=== PATIENT | male | born 1970 | race Hispanic/Latino ===

== ENCOUNTER 2017-12-26 20:56 | Observation (INO) | payer MEDICARE ==
[~2017-12-26] VITALS: Ht 162.6 cm; Wt 77.3 kg
[~2017-12-26 20:56] MED LIST: ALLO300T2 PO; AMLO10TA2 PO; CALC667C10 PO; FLUO40CA49 PO; LEVO88TA7 PO; LISI40TA4 PO; METO50TA18 PO; OMEP40CA37 PO; SIMV20TA6 PO
[2017-12-26 21:49] LABS: BASOPHILS % (AUTO) 0.9 % (0.0-5.0); EOSINOPHILS % (AUTO) 2.4 % (0.0-8.0); HEMATOCRIT 35.1 % (42-54); LYMPHOCYTES % (AUTO) 20.4 % (21.0-51.0); MEAN CORPUSCULAR HEMOGLOBIN 33.2 pg (27.0-33.0); MONOCYTES % (AUTO) 6.3 % (3.0-13.0); PLATELET COUNT (AUTO) 141 K/uL (130-400); RED CELL DISTRIBUTION WIDTH 15.4 % (11.0-15.5); WHITE BLOOD COUNT (AUTO) 6.6 K/uL (4.8-10.8)
[2017-12-26 22:07] LABS: CREATININE 6.4 mg/dL (0.5-1.5); POTASSIUM 4.4 mmol/L (3.5-5.1)
[2017-12-26 22:13] LABS: B-TYPE NATRIURETIC PEPTIDE 931 pg/mL (0-100)
[2017-12-26 22:20] LABS: ALBUMIN 2.5 g/dL (3.5-5.0); BILIRUBIN,DIRECT 0.2 mg/dL (0.0-0.3); BILIRUBIN,TOTAL 0.4 mg/dL (0.2-1.0); CREATINE KINASE MB 0.9 ng/mL (0.5-3.6); TOTAL PROTEIN, SERUM 5.9 g/dL (6.0-8.3)
[2017-12-27] VITALS (10 sets, daily range): BP systolic 100–160; BP diastolic 53–77
[2017-12-27] MEDS ORDERED: PANTOPRAZOLE SODIUM 40 MG TABLET.DR PO ONE (00:04)
[2017-12-27] MEDS ORDERED: HYDRALAZINE HCL 20 MG/ML VIAL IV PRN (02:45)
[2017-12-27] MEDS ORDERED: IPRATROPIUM/ALBUTEROL SULFATE 3 ML SOLUTION IH PRN (02:45)
[2017-12-27] MEDS ORDERED: DEXTROSE 50%-WATER 50 ML DISP.SYRIN IV PRN (02:45)
[2017-12-27] MEDS ORDERED: ONDANSETRON HCL 4 MG/2 ML VIAL IVP PRN (02:45)
[2017-12-27] MEDS ORDERED: GLUCAGON 1MG KIT 1 MG ML IM PRN (02:45)
[2017-12-27] MEDS ORDERED: LACTULOSE 20 GM/30 ML UDCUP PO PRN (02:45)
[2017-12-27] MEDS ORDERED: MORPHINE SULFATE 2 MG/ML 1ML SYG IVP PRN ×2 (02:45)
[2017-12-27 05:15] LABS: BASOPHILS % (AUTO) 0.8 % (0.0-5.0); LYMPHOCYTES % (AUTO) 22.4 % (21.0-51.0); MEAN CORPUSCULAR HEMOGLOBIN 32.6 pg (27.0-33.0); MEAN CORPUSCULAR HGB CONC 34.6 g/dL (32.0-36.0); MEAN CORPUSCULAR VOLUME 94.2 fL (79-99); MONOCYTES % (AUTO) 6.8 % (3.0-13.0); PLATELET COUNT (AUTO) 126 K/uL (130-400); RED BLOOD CELL COUNT(AUTO) 3.51 MIL/uL (4.50-6.20); RED CELL DISTRIBUTION WIDTH 15.2 % (11.0-15.5); WHITE BLOOD COUNT (AUTO) 6.8 K/uL (4.8-10.8)
[2017-12-27 05:37] LABS: CREATININE 6.6 mg/dL (0.5-1.5); POTASSIUM 4.4 mmol/L (3.5-5.1)
[2017-12-27] MEDS: INSULIN HUMULIN R 100 UNIT/ML 3ML SQ SCH ×3 (06:28→21:00)
[2017-12-27] MEDS ORDERED: FLU VACC QS2017-18 36MOS UP/PF 60 MCG/0.5 ML ML IM ONE (06:30)
[2017-12-27] MEDS ORDERED: FAMOTIDINE 20MG TAB 20 MG TAB PO SCH (09:00)
[2017-12-27 12:28] LABS: INR 1.08 (0.85-1.15); PARTIAL THROMBOPLASTIN TIME 28.7 SEC (26.3-35.5); PROTHROMBIN TIME 11.3 SEC (9.6-11.6)
[2017-12-27] MEDS ORDERED: CALCIUM ACETATE 667 MG CAPSULE PO SCH (14:00)
[2017-12-27] MEDS ORDERED: ALBUMIN (HUMAN) 25% 100 ML IV PRN (16:00)
[2017-12-27] MEDS ORDERED: HEPARIN SODIUM 5000UNIT/ML 1ML VIAL IJ PRN (16:00)
[2017-12-27] MEDS ORDERED: SODIUM CHLORIDE 0.9% 1000ML 1,000 ML IV PRN (16:00)
[2017-12-27] MEDS ORDERED: FLUOXETINE HCL 20 MG CAPSULE PO SCH (21:00)
[2017-12-27] MEDS ORDERED: METOPROLOL TARTRATE 50 MG TAB PO SCH (21:00)
[2017-12-27] MEDS ORDERED: ATORVASTATIN CALCIUM 10 MG TABLET PO SCH (21:00)
[2017-12-28] MEDS ORDERED: LEVOTHYROXINE 100 MCG TABLET PO SCH (06:30)
[2017-12-28] MEDS ORDERED: AMLODIPINE BESYLATE 5 MG TAB PO SCH (09:00)
[2017-12-28] MEDS ORDERED: LISINOPRIL 40 MG TABLET PO SCH (09:00)
[2017-12-28] MEDS ORDERED: ALLOPURINOL 300 MG TABLET PO SCH (09:00)
== END 2017-12-27 22:35 | disposition home or self-care (01) ==
LOC: EDH 20:56 → EDHIP 12-27 00:37 → 3DH 12-27 01:31
PROVIDERS: ADMIT Internal Medicine; ATTEND Internal Medicine
DX: R18.8 Other ascites (principal); N18.6 End stage renal disease; Z99.2 Dependence on renal dialysis; E11.22 Type 2 diabetes mellitus with diabetic chronic kidney disease; I12.0 Hypertensive chronic kidney disease with stage 5 chronic kidney disease or end stage renal disease; K74.60 Unspecified cirrhosis of liver; E78.5 Hyperlipidemia, unspecified; E03.9 Hypothyroidism, unspecified; D63.8 Anemia in other chronic diseases classified elsewhere; I25.10 Atherosclerotic heart disease of native coronary artery without angina pectoris; Z23 Encounter for immunization
CPT/HCPCS: 36415 ×2; 49083; 71045; 76700; 80048 ×2; 80076; 82550; 82553; 82948 ×6; 83690; 83880; 84484; 85025 ×2; 85610; 85730; 87804 ×2; 94664; 96374; 96375; 99285; G0008; G0378 ×22; J2405; J7030; Q2038; 90935

== ENCOUNTER 2018-03-12 16:31 | Inpatient (IN) | payer MEDICARE ==
[~2018-03-12] VITALS: Ht 162.6 cm; Wt 72.0 kg
[2018-03-12 17:03] LABS: BASOPHILS % (AUTO) 0.8 % (0.0-5.0); EOSINOPHILS % (AUTO) 2.5 % (0.0-8.0); HEMATOCRIT 32.3 % (42-54); LYMPHOCYTES % (AUTO) 20.9 % (21.0-51.0); MEAN CORPUSCULAR HEMOGLOBIN 32.6 pg (27.0-33.0); MEAN CORPUSCULAR HGB CONC 33.6 g/dL (32.0-36.0); MEAN CORPUSCULAR VOLUME 97.2 fL (79-99); MONOCYTES % (AUTO) 6.5 % (3.0-13.0); NEUTROPHILS % (AUTO) 69.3 % (40.0-77.0); PLATELET COUNT (AUTO) 203 K/uL (130-400); RED BLOOD CELL COUNT(AUTO) 3.33 MIL/uL (4.50-6.20); RED CELL DISTRIBUTION WIDTH 16.2 % (11.0-15.5); WHITE BLOOD COUNT (AUTO) 6.8 K/uL (4.8-10.8)
[2018-03-12 17:14] LABS: POTASSIUM 4.1 mmol/L (3.5-5.1)
[2018-03-12 17:29] LABS: ALBUMIN 2.1 g/dL (3.5-5.0); BILIRUBIN,TOTAL 0.3 mg/dL (0.2-1.0); CREATINE KINASE MB 3.4 ng/mL (0.5-3.6); TOTAL PROTEIN, SERUM 6.9 g/dL (6.0-8.3)
[2018-03-12 17:36] LABS: AMMONIA 15 umol/L (11-32); LIPASE 155 U/L (114-286)
[2018-03-12 18:17] LABS: INR 0.95 (0.85-1.15); PARTIAL THROMBOPLASTIN TIME 26.6 SEC (26.3-35.5)
[2018-03-12] MEDS ORDERED: FUROSEMIDE 10 MG/ML 4ML VIAL ONE (20:47)
[2018-03-13] VITALS (15 sets, daily range): BP systolic 107–141; BP diastolic 47–98
[2018-03-13] MEDS ORDERED: HYDRALAZINE HCL 20 MG/ML VIAL IV PRN (00:30)
[2018-03-13] MEDS ORDERED: ONDANSETRON HCL 4 MG/2 ML VIAL IV PRN (00:30)
[2018-03-13] MEDS: INSULIN HUMULIN R 100 UNIT/ML 3ML SQ SCH ×5 (06:17→21:00)
[2018-03-13] MEDS ORDERED: LOPERAMIDE HCL 2 MG CAP PO SCH (09:30)
[2018-03-13] MEDS ORDERED: ALBUMIN (HUMAN) 25% 100 ML IV SCH (13:30)
[2018-03-13 19:42] LABS: APPEARANCE BODY FLUID CLEAR (CLEAR); COLOR,BODY FLUID YELLOW (LT YELLOW); SPECIMENTYPE,BODY FLUID PARACENTESIS
[2018-03-13 19:43] LABS: BODY FLUID RBC 121 /cu. mm.; BODY FLUID WBC 109 /cu. mm.; TOTAL VOLUME,BODY FLUID 33 mL
[2018-03-13 20:10] LABS: BF LYMPHOCYTE 55 %; BF MONOCYTE 13 %; BF OTHER CELLS 3
[2018-03-14] VITALS (7 sets, daily range): BP systolic 103–128; BP diastolic 49–69
[2018-03-14] MEDS ORDERED: ACETAMINOPHEN 325 MG TAB PO ONE (00:15)
[2018-03-14] MEDS ORDERED: ACETAMINOPHEN 325 MG TAB ONE (00:24)
[2018-03-14 04:08] LABS: CREATININE 7.5 mg/dL (0.5-1.5); POTASSIUM 5.5 mmol/L (3.5-5.1)
[2018-03-14] MEDS: INSULIN HUMULIN R 100 UNIT/ML 3ML SQ SCH ×3 (07:30→21:00)
[2018-03-14 10:28] LABS: HEMATOCRIT 31.2 % (42-54); MEAN CORPUSCULAR HEMOGLOBIN 32.5 pg (27.0-33.0); MEAN CORPUSCULAR HGB CONC 32.9 g/dL (32.0-36.0); MEAN CORPUSCULAR VOLUME 98.7 fL (79-99); PLATELET COUNT (AUTO) 171 K/uL (130-400); RED BLOOD CELL COUNT(AUTO) 3.16 MIL/uL (4.50-6.20); RED CELL DISTRIBUTION WIDTH 15.7 % (11.0-15.5); WHITE BLOOD COUNT (AUTO) 7.4 K/uL (4.8-10.8)
[2018-03-14] MEDS ORDERED: HEPARIN SODIUM 5000UNIT/ML 1ML VIAL ONE (18:29)
[2018-03-14] MEDS ORDERED: ALBUMIN (HUMAN) 25% 100 ML IV PRN (19:00)
[2018-03-14] MEDS ORDERED: 0.9% SODIUM CHLORIDE 250 ML IV BAG IV PRN (19:00)
[2018-03-14] MEDS ORDERED: SODIUM CHLORIDE 0.9% 1000ML 1,000 ML IV PRN (19:00)
[2018-03-14] MEDS ORDERED: ACETAMINOPHEN EXTRA STRENGTH 500 MG TABLET PO PRN (21:45)
[2018-03-14] MEDS ORDERED: ACETAMINOPHEN EXTRA STRENGTH 500 MG TABLET ONE (21:50)
[2018-03-14] MEDS: CEFTRIAXONE SODIUM 1 GM IV SCH (21:56)
[2018-03-15 04:00] VITALS: BP 134/73
[2018-03-15 05:37] LABS: CREATININE 5.2 mg/dL (0.5-1.5); POTASSIUM 4.5 mmol/L (3.5-5.1)
[2018-03-15] MEDS: INSULIN HUMULIN R 100 UNIT/ML 3ML SQ SCH ×3 (07:30→16:30)
[2018-03-15 08:00] VITALS: BP 125/67
[2018-03-15] MEDS: CEFTRIAXONE SODIUM 1 GM IV SCH (08:16)
[2018-03-15] MEDS ORDERED: LEVO250T2 PO (10:25)
[2018-03-15 12:00] VITALS: BP 133/64
[2018-03-15 17:38] VITALS: BP 152/53
[2018-03-15] MEDS ORDERED: CEFTRIAXONE SODIUM 1 GM IV SCH (21:00)
== END 2018-03-15 19:55 | disposition home or self-care (01) | DRG 423 ==
LOC: EDH 16:31 → EDHIP 20:11 → OBSVTOIN 20:11 → 3AH 23:32
PROVIDERS: ADMIT Internal Medicine; ATTEND Internal Medicine
PROC: 0W9G3ZZ Drainage of Peritoneal Cavity, Percutaneous Approach (ICD-10-PCS; principal; 2018-03-13)
PROC: 0JBQ0ZZ Excision of Right Foot Subcutaneous Tissue and Fascia, Open Approach (ICD-10-PCS; 2018-03-13)
PROC: 5A1D70Z Performance of Urinary Filtration, Intermittent, Less than 6 Hours Per Day (ICD-10-PCS; 2018-03-14)
DX: K70.31 Alcoholic cirrhosis of liver with ascites (principal); N18.6 End stage renal disease; E11.22 Type 2 diabetes mellitus with diabetic chronic kidney disease; E11.51 Type 2 diabetes mellitus with diabetic peripheral angiopathy without gangrene; I12.0 Hypertensive chronic kidney disease with stage 5 chronic kidney disease or end stage renal disease; L97.429 Non-pressure chronic ulcer of left heel and midfoot with unspecified severity; E11.621 Type 2 diabetes mellitus with foot ulcer; E78.5 Hyperlipidemia, unspecified; E87.70 Fluid overload, unspecified; Z89.439 Acquired absence of unspecified foot; Z99.2 Dependence on renal dialysis; Z88.1 Allergy status to other antibiotic agents
CPT/HCPCS: 36415; 49083; 71045; 80048; 80053; 82140; 82550; 82553; 82948; 83690; 84157; 84484; 85025; 85027; 85610; 85730; 87071; 87205; 88108; 89051; 90935; 93005; 93306; A4218; J0696; J1644; J1940; P9046

== ENCOUNTER 2018-04-14 18:47 | Emergency (ER) | payer MEDICARE ==
[~2018-04-14 18:47] MED LIST changes: +LEVO250T2 PO
[2018-04-14] MEDS ORDERED: ONDANSETRON HCL MDV 20ML 2 MG/ML VIAL ONE (19:56)
[2018-04-14] MEDS ORDERED: SODIUM CHLORIDE 0.9% 250 ML IV ONE (19:57)
[2018-04-14 20:03] LABS: BASOPHILS % (AUTO) 0.9 % (0.0-5.0); EOSINOPHILS % (AUTO) 3.2 % (0.0-8.0); HEMATOCRIT 29.3 % (42-54); LYMPHOCYTES % (AUTO) 21.6 % (21.0-51.0); MEAN CORPUSCULAR HGB CONC 33.6 g/dL (32.0-36.0); MEAN CORPUSCULAR VOLUME 98.1 fL (79-99); MONOCYTES % (AUTO) 7.7 % (3.0-13.0); NEUTROPHILS % (AUTO) 66.6 % (40.0-77.0); PLATELET COUNT (AUTO) 170 K/uL (130-400); RED BLOOD CELL COUNT(AUTO) 2.99 MIL/uL (4.50-6.20); RED CELL DISTRIBUTION WIDTH 14.8 % (11.0-15.5); WHITE BLOOD COUNT (AUTO) 6.6 K/uL (4.8-10.8)
[2018-04-14 20:15] LABS: CREATININE 5.8 mg/dL (0.5-1.5); POTASSIUM 4.7 mmol/L (3.5-5.1)
[2018-04-14 20:19] LABS: BILIRUBIN,TOTAL 0.3 mg/dL (0.2-1.0); TOTAL PROTEIN, SERUM 5.7 g/dL (6.0-8.3)
== END 2018-04-14 22:51 | disposition home or self-care (01) ==
LOC: EDH 18:47
DX: R18.8 Other ascites (principal); R19.7 Diarrhea, unspecified; D64.9 Anemia, unspecified; I12.0 Hypertensive chronic kidney disease with stage 5 chronic kidney disease or end stage renal disease; E11.22 Type 2 diabetes mellitus with diabetic chronic kidney disease; N18.6 End stage renal disease; E07.9 Disorder of thyroid, unspecified; E78.5 Hyperlipidemia, unspecified; Z99.2 Dependence on renal dialysis; Z88.1 Allergy status to other antibiotic agents
CPT/HCPCS: 36415; 74176; 80053; 83690; 84484; 85025; 93005; 96361; 96374; 96375; 99285; J7030

== ENCOUNTER 2018-09-20 17:41 | Emergency (ER) | payer MEDICARE ==
[~2018-09-20 17:41] MED LIST changes: +ALLO100T PO; -ALLO300T2 PO; -AMLO10TA2 PO; +AMLO10TA4 PO; +CLOP75TA14 PO; -FLUO40CA49 PO; +FLUO40CA7 PO; +FOLI0.8T43 PO; +LEVO100T12 PO; -LEVO250T2 PO; -LEVO88TA7 PO; -LISI40TA4 PO; -OMEP40CA37 PO; +ONDA4TAB9 PO; -SIMV20TA6 PO; +SIMV40TA59 PO
[2018-09-20] MEDS ORDERED: HYDROCODONE/ACETAMINOPHEN 10/325 MG TAB ONE (17:50)
== END 2018-09-20 21:47 | disposition home or self-care (01) ==
LOC: EDH 17:41
DX: M79.672 Pain in left foot (principal); R50.9 Fever, unspecified; I12.0 Hypertensive chronic kidney disease with stage 5 chronic kidney disease or end stage renal disease; E11.22 Type 2 diabetes mellitus with diabetic chronic kidney disease; N18.6 End stage renal disease; E78.5 Hyperlipidemia, unspecified; E07.9 Disorder of thyroid, unspecified; Z88.1 Allergy status to other antibiotic agents; Z99.2 Dependence on renal dialysis; Z98.890 Other specified postprocedural states
CPT/HCPCS: 93925

== ENCOUNTER 2018-10-21 21:13 | Inpatient (IN) | payer MEDICARE ==
[~2018-10-21] VITALS: Ht 162.6 cm; Wt 70.0 kg
[2018-10-21] MEDS ORDERED: MORPHINE SULFATE 4 MG/1ML SYG ONE (21:42)
[2018-10-21 22:06] LABS: BASOPHILS % (AUTO) 1.2 % (0.0-5.0); EOSINOPHILS % (AUTO) 3.3 % (0.0-8.0); HEMATOCRIT 31.3 % (42-54); LYMPHOCYTES % (AUTO) 19.2 % (21.0-51.0); MEAN CORPUSCULAR HEMOGLOBIN 31.2 pg (27.0-33.0); MEAN CORPUSCULAR VOLUME 97.4 fL (79-99); MONOCYTES % (AUTO) 6.6 % (3.0-13.0); NEUTROPHILS % (AUTO) 69.7 % (40.0-77.0); NUCLEATED RED BLOOD CELLS 0.1 % (0.0-0.19); PLATELET COUNT (AUTO) 137 K/uL (130-400); RED BLOOD CELL COUNT(AUTO) 3.22 MIL/uL (4.50-6.20); RED CELL DISTRIBUTION WIDTH 14.3 % (11.0-15.5); WHITE BLOOD COUNT (AUTO) 7.1 K/uL (4.8-10.8)
[2018-10-21 22:23] LABS: ALBUMIN 2.6 g/dL (3.5-5.0); BILIRUBIN,TOTAL 0.5 mg/dL (0.2-1.0); TOTAL PROTEIN, SERUM 7.2 g/dL (6.0-8.3)
[2018-10-21 22:33] LABS: CREATININE 8.7 mg/dL (0.5-1.5)
[2018-10-21 23:08] LABS: ERYTHROCYTE SEDIMENTATION RATE 57 MM/HR (0-15)
[2018-10-22] MEDS ORDERED: SODIUM POLYSTYRENE SULFONATE 15 GM/60 ML ML ONE (00:09)
[2018-10-22] MEDS ORDERED: SODIUM POLYSTYRENE SULFONATE 15 GM/60 ML ML PO SCH (00:15)
[2018-10-22] MEDS ORDERED: ONDANSETRON HCL 4 MG/2 ML VIAL IV PRN (00:15)
[2018-10-22] MEDS ORDERED: ACETAMINOPHEN 325 MG TAB PO PRN (00:15)
[2018-10-22] MEDS ORDERED: ALBUTEROL SULFATE 0.083% 2.5 MG/3 ML INH IH PRN (00:15)
[2018-10-22] MEDS ORDERED: MORPHINE SULFATE 4 MG/1ML SYG IV PRN (00:15)
[2018-10-22] MEDS ORDERED: MEROPENEM 500 MG VIAL IVP SCH ×2 (01:00)
[2018-10-22] MEDS ORDERED: MEROPENEM 1 GM VIAL ONE (02:27)
[2018-10-22] MEDS ORDERED: SODIUM CHLORIDE 0.9% 50 ML IV ONE (02:28)
[2018-10-22] MEDS ORDERED: ONDANSETRON 4 MG TABLET ONE (02:28)
[2018-10-22] MEDS: LEVOTHYROXINE 100 MCG TABLET PO SCH (07:30)
[2018-10-22] MEDS: CALCIUM ACETATE 667 MG CAPSULE PO SCH ×3 (08:00→17:00)
[2018-10-22] MEDS: ALLOPURINOL 100 MG TABLET PO SCH (09:00)
[2018-10-22] MEDS ORDERED: ENOXAPARIN SODIUM 30 MG/0.3 ML SQ SCH (09:00)
[2018-10-22] MEDS: FAMOTIDINE/PF 20 MG/2 ML VIAL IV SCH (09:00)
[2018-10-22] MEDS: FLUOXETINE HCL 20 MG CAPSULE PO SCH (09:00)
[2018-10-22] MEDS: FOLIC ACID/VITAMIN B COMP W-C 1 MG CAPSULE PO SCH (09:00)
[2018-10-22] MEDS: CLOPIDOGREL BISULFATE 75 MG TAB PO SCH (09:00)
[2018-10-22] MEDS ORDERED: METOPROLOL TARTRATE 50 MG TAB PO SCH (09:00)
[2018-10-22] MEDS: AMLODIPINE BESYLATE 5 MG TAB PO SCH (09:00)
[2018-10-22] MEDS ORDERED: CLOPIDOGREL BISULFATE 75 MG TAB ONE (09:19)
[2018-10-22] MEDS ORDERED: MEROPENEM 500 MG VIAL ONE (09:19)
[2018-10-22] MEDS ORDERED: METOPROLOL TARTRATE 50 MG TAB ONE (09:20)
[2018-10-22] MEDS ORDERED: AMLODIPINE BESYLATE 5 MG TAB PO ONE (09:20)
[2018-10-22] MEDS ORDERED: ENOXAPARIN SODIUM 30 MG/0.3 ML SQ ONE (09:20)
[2018-10-22] MEDS ORDERED: FAMOTIDINE/PF 20 MG/2 ML VIAL IV ONE (09:21)
[2018-10-22 16:00] VITALS: BP 111/75
[2018-10-22] MEDS: ONDANSETRON 4 MG TABLET PO SCH (16:00)
[2018-10-22] MEDS: INSULIN HUMULIN R 100 UNIT/ML 3ML SQ SCH ×2 (16:30→20:36)
[2018-10-22 17:59] LABS: CREATININE 9.7 mg/dL (0.5-1.5); POTASSIUM 7.1 mmol/L (3.5-5.1)
[2018-10-22 19:00] VITALS: BP 123/46
[2018-10-22] MEDS ORDERED: 0.9% SODIUM CHLORIDE 250 ML IV BAG IV PRN (21:00)
[2018-10-22] MEDS ORDERED: ALBUMIN (HUMAN) 25% 100 ML IV PRN (21:00)
[2018-10-22] MEDS ORDERED: SODIUM CHLORIDE 0.9% 1000ML 1,000 ML IV PRN (21:00)
[2018-10-23] VITALS (7 sets, daily range): BP systolic 112–131; BP diastolic 57–72
[2018-10-23] MEDS: ONDANSETRON 4 MG TABLET PO SCH ×3 (00:10→17:54)
[2018-10-23] MEDS: ATORVASTATIN CALCIUM 20 MG TABLET PO SCH ×2 (00:10→22:13)
[2018-10-23] MEDS: FAMOTIDINE/PF 20 MG/2 ML VIAL IV SCH ×3 (00:10→22:13)
[2018-10-23 05:39] LABS: HEMATOCRIT 30.9 % (42-54); MEAN CORPUSCULAR HEMOGLOBIN 31.4 pg (27.0-33.0); MEAN CORPUSCULAR HGB CONC 32.7 g/dL (32.0-36.0); MEAN CORPUSCULAR VOLUME 96.2 fL (79-99); NUCLEATED RED BLOOD CELLS 0.2 % (0.0-0.19); PLATELET COUNT (AUTO) 121 K/uL (130-400); RED BLOOD CELL COUNT(AUTO) 3.21 MIL/uL (4.50-6.20); RED CELL DISTRIBUTION WIDTH 14.4 % (11.0-15.5); WHITE BLOOD COUNT (AUTO) 6.6 K/uL (4.8-10.8)
[2018-10-23] MEDS: HEPARIN SODIUM 5000UNIT/ML 1ML VIAL SQ SCH ×3 (05:45→17:49)
[2018-10-23 05:49] LABS: CREATININE 6.6 mg/dL (0.5-1.5); POTASSIUM 4.2 mmol/L (3.5-5.1)
[2018-10-23] MEDS: INSULIN HUMULIN R 100 UNIT/ML 3ML SQ SCH ×4 (07:30→21:00)
[2018-10-23] MEDS: FOLIC ACID/VITAMIN B COMP W-C 1 MG CAPSULE PO SCH (09:04)
[2018-10-23] MEDS: AMLODIPINE BESYLATE 5 MG TAB PO SCH (09:04)
[2018-10-23] MEDS: CALCIUM ACETATE 667 MG CAPSULE PO SCH ×3 (09:04→17:50)
[2018-10-23] MEDS: MEROPENEM 1 GM VIAL IVP SCH (09:04)
[2018-10-23] MEDS: ALLOPURINOL 100 MG TABLET PO SCH (09:04)
[2018-10-23] MEDS: CLOPIDOGREL BISULFATE 75 MG TAB PO SCH (09:04)
[2018-10-23] MEDS: FLUOXETINE HCL 20 MG CAPSULE PO SCH (09:05)
[2018-10-23] MEDS: LEVOTHYROXINE 100 MCG TABLET PO SCH (09:06)
[2018-10-23 18:24] LABS: ABG BASE EXCESS -5.1 mmol/L (-2.0-3.0); ABG HCO3 22.1 mmol/L (21.0-28.0); ABG OXYGEN SATURATION 88.7 % (95.0-99.0); ABG PCO2 49 mmHg (35-48)
[2018-10-23] MEDS: HONEY 1 APPL/ML TUBE TP SCH (20:00)
[2018-10-24] VITALS: BP 137/72
[2018-10-24] MEDS: ONDANSETRON 4 MG TABLET PO SCH ×3 (00:03→16:28)
[2018-10-24 04:00] VITALS: BP 119/56
[2018-10-24] MEDS: LEVOTHYROXINE 100 MCG TABLET PO SCH (05:07)
[2018-10-24 05:11] LABS: HEMATOCRIT 32.3 % (42-54); MEAN CORPUSCULAR HEMOGLOBIN 32.5 pg (27.0-33.0); MEAN CORPUSCULAR HGB CONC 33.7 g/dL (32.0-36.0); MEAN CORPUSCULAR VOLUME 96.7 fL (79-99); PLATELET COUNT (AUTO) 140 K/uL (130-400); RED BLOOD CELL COUNT(AUTO) 3.34 MIL/uL (4.50-6.20); RED CELL DISTRIBUTION WIDTH 14.9 % (11.0-15.5); WHITE BLOOD COUNT (AUTO) 6.3 K/uL (4.8-10.8)
[2018-10-24 05:24] LABS: POTASSIUM 5.3 mmol/L (3.5-5.1)
[2018-10-24 05:26] LABS: CREATININE 8.4 mg/dL (0.5-1.5)
[2018-10-24] MEDS: HEPARIN SODIUM 5000UNIT/ML 1ML VIAL SQ SCH ×2 (05:41→17:56)
[2018-10-24 07:00] VITALS: BP 110/53
[2018-10-24] MEDS: INSULIN HUMULIN R 100 UNIT/ML 3ML SQ SCH ×4 (07:30→20:40)
[2018-10-24] MEDS: CALCIUM ACETATE 667 MG CAPSULE PO SCH ×3 (08:00→16:31)
[2018-10-24] MEDS ORDERED: LIDOCAINE HCL 1% 20 ML VIAL ONE (08:54)
[2018-10-24] MEDS: AMLODIPINE BESYLATE 5 MG TAB PO SCH (09:00)
[2018-10-24] MEDS: MEROPENEM 1 GM VIAL IVP SCH (09:00)
[2018-10-24 09:10] LABS: INR 1.02 (0.85-1.15); PARTIAL THROMBOPLASTIN TIME 29.4 SEC (26.3-35.5); PROTHROMBIN TIME 10.7 SEC (9.6-11.6)
[2018-10-24] MEDS: FLUOXETINE HCL 20 MG CAPSULE PO SCH (10:30)
[2018-10-24] MEDS: HONEY 1 APPL/ML TUBE TP SCH (10:31)
[2018-10-24] MEDS: ALLOPURINOL 100 MG TABLET PO SCH (10:31)
[2018-10-24] MEDS: FOLIC ACID/VITAMIN B COMP W-C 1 MG CAPSULE PO SCH (10:31)
[2018-10-24] MEDS: CLOPIDOGREL BISULFATE 75 MG TAB PO SCH (10:31)
[2018-10-24] MEDS: FAMOTIDINE/PF 20 MG/2 ML VIAL IV SCH ×2 (10:32→20:35)
[2018-10-24 12:00] VITALS: BP 127/64
[2018-10-24] MEDS ORDERED: VANCOMYCIN PROTOCOL PER PHARMACY IV SCH (14:00)
[2018-10-24] MEDS ORDERED: COMPOUND IV REFRIGERATED 1 EACH IVSOLN MISC PRN (14:15)
[2018-10-24] MEDS ORDERED: VANCOMYCIN 1.25 GM in SODIUM CHLORIDE 0.9% 250 ML IV SCH ×4 (14:30)
[2018-10-24 16:00] VITALS: BP 150/71
[2018-10-24 20:00] VITALS: BP 128/51
[2018-10-24] MEDS: ATORVASTATIN CALCIUM 20 MG TABLET PO SCH (20:35)
[2018-10-25] VITALS (13 sets, daily range): BP systolic 104–170; BP diastolic 41–71
[2018-10-25 05:07] LABS: ABG BASE EXCESS -1.3 mmol/L (-2.0-3.0); ABG OXYGEN SATURATION 98.7 % (95.0-99.0); ABG PCO2 48 mmHg (35-48)
[2018-10-25 05:18] LABS: MEAN CORPUSCULAR HEMOGLOBIN 31.4 pg (27.0-33.0); MEAN CORPUSCULAR HGB CONC 32.7 g/dL (32.0-36.0); MEAN CORPUSCULAR VOLUME 96.2 fL (79-99); NUCLEATED RED BLOOD CELLS 0.1 % (0.0-0.19); PLATELET COUNT (AUTO) 125 K/uL (130-400); RED BLOOD CELL COUNT(AUTO) 3.43 MIL/uL (4.50-6.20); RED CELL DISTRIBUTION WIDTH 14.6 % (11.0-15.5)
[2018-10-25 05:25] LABS: CREATININE 7.1 mg/dL (0.5-1.5); POTASSIUM 4.5 mmol/L (3.5-5.1)
[2018-10-25] MEDS: HEPARIN SODIUM 5000UNIT/ML 1ML VIAL SQ SCH ×2 (05:45→17:32)
[2018-10-25] MEDS: LEVOTHYROXINE 100 MCG TABLET PO SCH (06:35)
[2018-10-25] MEDS: INSULIN HUMULIN R 100 UNIT/ML 3ML SQ SCH ×4 (06:35→20:56)
[2018-10-25] MEDS: ONDANSETRON 4 MG TABLET PO SCH ×3 (08:00→17:52)
[2018-10-25] MEDS: CALCIUM ACETATE 667 MG CAPSULE PO SCH ×3 (08:00→17:51)
[2018-10-25] MEDS ORDERED: IOHEXOL-350 50ML VIAL IV ONE (08:07)
[2018-10-25] MEDS ORDERED: IOHEXOL-350 75 ML VIAL IV ONE (08:07)
[2018-10-25] MEDS: CLOPIDOGREL BISULFATE 75 MG TAB PO SCH (09:00)
[2018-10-25] MEDS: FAMOTIDINE/PF 20 MG/2 ML VIAL IV SCH ×2 (12:25→21:00)
[2018-10-25] MEDS: AMLODIPINE BESYLATE 5 MG TAB PO SCH (12:26)
[2018-10-25] MEDS: FOLIC ACID/VITAMIN B COMP W-C 1 MG CAPSULE PO SCH (12:26)
[2018-10-25] MEDS: FLUOXETINE HCL 20 MG CAPSULE PO SCH (12:26)
[2018-10-25] MEDS: ALLOPURINOL 100 MG TABLET PO SCH (12:26)
[2018-10-25] MEDS: MEROPENEM 1 GM VIAL IVP SCH (12:26)
[2018-10-25] MEDS: HONEY 1 APPL/ML TUBE TP SCH (12:27)
[2018-10-25] MEDS ORDERED: ALBUMIN (HUMAN) 25% 200 ML IV SCH (12:45)
[2018-10-25 16:52] LABS: APPEARANCE BODY FLUID SLIGHTLY CLOUDY (CLEAR); COLOR,BODY FLUID YELLOW (LT YELLOW); SPECIMENTYPE,BODY FLUID ASCITES; TOTAL VOLUME,BODY FLUID 5100 mL
[2018-10-25 16:53] LABS: BODY FLUID RBC 239 /cu. mm.; BODY FLUID WBC 277 /cu. mm.
[2018-10-25 17:25] LABS: BF EOSINOPHIL 1 %; BF LYMPHOCYTE 34 %; BF MONOCYTE 3 %; BF OTHER CELLS 28
[2018-10-25] MEDS: ATORVASTATIN CALCIUM 20 MG TABLET PO SCH (21:00)
[2018-10-26 03:57] VITALS: BP 116/42
[2018-10-26] MEDS: LEVOTHYROXINE 100 MCG TABLET PO SCH (05:23)
[2018-10-26] MEDS: HEPARIN SODIUM 5000UNIT/ML 1ML VIAL SQ SCH ×2 (05:27→17:45)
[2018-10-26] MEDS: INSULIN HUMULIN R 100 UNIT/ML 3ML SQ SCH ×4 (06:07→20:40)
[2018-10-26 08:28] VITALS: BP 147/63
[2018-10-26] MEDS: FOLIC ACID/VITAMIN B COMP W-C 1 MG CAPSULE PO SCH (09:00)
[2018-10-26] MEDS: CLOPIDOGREL BISULFATE 75 MG TAB PO SCH (09:00)
[2018-10-26] MEDS: FLUOXETINE HCL 20 MG CAPSULE PO SCH (09:00)
[2018-10-26] MEDS: MEROPENEM 1 GM VIAL IVP SCH (09:00)
[2018-10-26] MEDS: ALLOPURINOL 100 MG TABLET PO SCH (09:00)
[2018-10-26] MEDS: FAMOTIDINE/PF 20 MG/2 ML VIAL IV SCH ×2 (09:00→20:27)
[2018-10-26] MEDS: HONEY 1 APPL/ML TUBE TP SCH (09:00)
[2018-10-26] MEDS: AMLODIPINE BESYLATE 5 MG TAB PO SCH (09:00)
[2018-10-26 11:56] VITALS: BP 143/69
[2018-10-26] MEDS: CALCIUM ACETATE 667 MG CAPSULE PO SCH ×2 (12:22→17:00)
[2018-10-26] MEDS: ONDANSETRON 4 MG TABLET PO SCH ×3 (12:22→16:00)
[2018-10-26 17:04] VITALS: BP 144/59
[2018-10-26 19:19] VITALS: BP 138/64
[2018-10-26 19:37] VITALS: BP 152/77
[2018-10-26] MEDS: ATORVASTATIN CALCIUM 20 MG TABLET PO SCH (20:27)
[2018-10-27] MEDS: ONDANSETRON 4 MG TABLET PO SCH
[2018-10-27 03:00] VITALS: BP 152/74
[2018-10-27] MEDS: LEVOTHYROXINE 100 MCG TABLET PO SCH (05:46)
[2018-10-27] MEDS: HEPARIN SODIUM 5000UNIT/ML 1ML VIAL SQ SCH (05:50)
[2018-10-27 08:39] VITALS: BP 153/70
[2018-10-27 08:45] LABS: HEMATOCRIT 35.1 % (42-54); MEAN CORPUSCULAR HEMOGLOBIN 30.9 pg (27.0-33.0); MEAN CORPUSCULAR HGB CONC 32.3 g/dL (32.0-36.0); MEAN CORPUSCULAR VOLUME 95.7 fL (79-99); NUCLEATED RED BLOOD CELLS 0.1 % (0.0-0.19); PLATELET COUNT (AUTO) 114 K/uL (130-400); RED BLOOD CELL COUNT(AUTO) 3.67 MIL/uL (4.50-6.20); RED CELL DISTRIBUTION WIDTH 14.8 % (11.0-15.5); WHITE BLOOD COUNT (AUTO) 4.8 K/uL (4.8-10.8)
[2018-10-27 08:53] LABS: CREATININE 7.6 mg/dL (0.5-1.5); MAGNESIUM 2.3 mg/dL (1.80-2.40); POTASSIUM 4.5 mmol/L (3.5-5.1)
[2018-10-27] MEDS ORDERED: VANCOMYCIN 1.25 GM in SODIUM CHLORIDE 0.9% 250 ML IV SCH (11:30)
[2018-10-27] MEDS: CALCIUM ACETATE 667 MG CAPSULE PO SCH (12:28)
[2018-10-27] MEDS: FOLIC ACID/VITAMIN B COMP W-C 1 MG CAPSULE PO SCH (12:29)
[2018-10-27] MEDS: FLUOXETINE HCL 20 MG CAPSULE PO SCH (12:29)
[2018-10-27] MEDS: AMLODIPINE BESYLATE 5 MG TAB PO SCH (12:29)
[2018-10-27] MEDS: CLOPIDOGREL BISULFATE 75 MG TAB PO SCH (12:29)
[2018-10-27] MEDS: ALLOPURINOL 100 MG TABLET PO SCH (12:29)
[2018-10-27] MEDS: MEROPENEM 1 GM VIAL IVP SCH (12:30)
[2018-10-27 13:34] VITALS: BP 122/58
[2018-10-27 17:05] VITALS: BP 142/76
== END 2018-10-27 18:45 | DRG 602 ==
LOC: EDH 21:13 → EDHIP 23:45 → OBSVTOIN 23:45 → INTOOBSV 23:45 → 3AH 10-22 14:09
PROVIDERS: ADMIT Hospitalist; ATTEND Hospitalist
PROC: 5A1D70Z Performance of Urinary Filtration, Intermittent, Less than 6 Hours Per Day (ICD-10-PCS; principal; 2018-10-22)
PROC: 5A09357 Assistance with Respiratory Ventilation, Less than 24 Consecutive Hours, Continuous Positive Airway Pressure (ICD-10-PCS; 2018-10-23)
PROC: 5A1D70Z Performance of Urinary Filtration, Intermittent, Less than 6 Hours Per Day (ICD-10-PCS; 2018-10-24)
PROC: 5A09357 Assistance with Respiratory Ventilation, Less than 24 Consecutive Hours, Continuous Positive Airway Pressure (ICD-10-PCS; 2018-10-24)
PROC: 0W9G3ZZ Drainage of Peritoneal Cavity, Percutaneous Approach (ICD-10-PCS; 2018-10-24)
PROC: 5A09357 Assistance with Respiratory Ventilation, Less than 24 Consecutive Hours, Continuous Positive Airway Pressure (ICD-10-PCS; 2018-10-25)
PROC: 5A1D70Z Performance of Urinary Filtration, Intermittent, Less than 6 Hours Per Day (ICD-10-PCS; 2018-10-26)
DX: L03.116 Cellulitis of left lower limb (principal); N18.6 End stage renal disease; I96 Gangrene, not elsewhere classified; J96.11 Chronic respiratory failure with hypoxia; J96.12 Chronic respiratory failure with hypercapnia; L97.409 Non-pressure chronic ulcer of unspecified heel and midfoot with unspecified severity; M86.8X7 Other osteomyelitis, ankle and foot; I12.0 Hypertensive chronic kidney disease with stage 5 chronic kidney disease or end stage renal disease; E11.52 Type 2 diabetes mellitus with diabetic peripheral angiopathy with gangrene; E11.69 Type 2 diabetes mellitus with other specified complication; E11.622 Type 2 diabetes mellitus with other skin ulcer; K70.31 Alcoholic cirrhosis of liver with ascites; E11.621 Type 2 diabetes mellitus with foot ulcer; E11.22 Type 2 diabetes mellitus with diabetic chronic kidney disease; E11.65 Type 2 diabetes mellitus with hyperglycemia; D64.9 Anemia, unspecified; E03.9 Hypothyroidism, unspecified; E66.9 Obesity, unspecified; E78.00 Pure hypercholesterolemia, unspecified; E87.5 Hyperkalemia; E78.2 Mixed hyperlipidemia; G47.33 Obstructive sleep apnea (adult) (pediatric); Z68.26 Body mass index [BMI] 26.0-26.9, adult; Z88.8 Allergy status to other drugs, medicaments and biological substances; L97.529 Non-pressure chronic ulcer of other part of left foot with unspecified severity; Z79.4 Long term (current) use of insulin; Z99.2 Dependence on renal dialysis; Z89.432 Acquired absence of left foot; Z89.421 Acquired absence of other right toe(s); Z82.5 Family history of asthma and other chronic lower respiratory diseases; Z82.49 Family history of ischemic heart disease and other diseases of the circulatory system; Z83.3 Family history of diabetes mellitus
CPT/HCPCS: 36415; 36600; 49083; 71045; 73630; 73721; 75635; 80048; 80053; 80339; 82140; 82803; 82948; 83735; 85025; 85027; 85610; 85651; 85730; 87071; 87205; 88108; 88305; 89051; 90935; 93925; 93970; 94660; J1644; J1650; J1815; J2185; J2270; J3370; J3490; J7030; P9046; Q0162; Q9967

== ENCOUNTER → 2018-11-22 | Outpatient (CLI) | payer MEDICARE ==
[~2018-11-22] MED LIST changes: +LIDOCAINE HCL 1% 20 ML VIAL ONE
[2018-11-22 09:41] LABS: BASOPHILS % (AUTO) 1.1 % (0.0-5.0); EOSINOPHILS % (AUTO) 4.2 % (0.0-8.0); HEMATOCRIT 34.1 % (42-54); LYMPHOCYTES % (AUTO) 18.5 % (21.0-51.0); MEAN CORPUSCULAR HEMOGLOBIN 31.2 pg (27.0-33.0); MEAN CORPUSCULAR HGB CONC 33.4 g/dL (32.0-36.0); MEAN CORPUSCULAR VOLUME 93.5 fL (79-99); MONOCYTES % (AUTO) 6.8 % (3.0-13.0); NEUTROPHILS % (AUTO) 69.4 % (40.0-77.0); NUCLEATED RED BLOOD CELLS 0.1 % (0.0-0.19); PLATELET COUNT (AUTO) 177 K/uL (130-400); RED BLOOD CELL COUNT(AUTO) 3.65 MIL/uL (4.50-6.20); RED CELL DISTRIBUTION WIDTH 14.4 % (11.0-15.5); WHITE BLOOD COUNT (AUTO) 7.2 K/uL (4.8-10.8)
[2018-11-22 09:49] LABS: INR 1.02 (0.85-1.15); PARTIAL THROMBOPLASTIN TIME 29.2 SEC (26.3-35.5); PROTHROMBIN TIME 10.7 SEC (9.6-11.6)
== END | disposition home or self-care (01) ==
LOC: RAH 09:12
PROVIDERS: ATTEND Internal Medicine Nephrology
DX: K70.31 Alcoholic cirrhosis of liver with ascites (principal); Z87.891 Personal history of nicotine dependence; E11.9 Type 2 diabetes mellitus without complications; I10 Essential (primary) hypertension
CPT/HCPCS: 36415; 49083; 85025; 85610; 85730; A4215

== ENCOUNTER 2019-01-18 19:26 | Observation (INO) | payer MEDICARE ==
[~2019-01-18] VITALS: Ht 162.6 cm; Wt 76.9 kg
[~2019-01-18 19:26] MED LIST changes: -LIDOCAINE HCL 1% 20 ML VIAL ONE
[2019-01-18] MEDS ORDERED: NITROGLYCERIN 0.4 MG SL TAB SL ONE (20:05)
[2019-01-18 20:14] LABS: BASOPHILS % (AUTO) 0.9 % (0.0-5.0); EOSINOPHILS % (AUTO) 3.2 % (0.0-8.0); HEMATOCRIT 29.8 % (42-54); LYMPHOCYTES % (AUTO) 20.2 % (21.0-51.0); MEAN CORPUSCULAR HEMOGLOBIN 32.8 pg (27.0-33.0); MEAN CORPUSCULAR HGB CONC 33.5 g/dL (32.0-36.0); MEAN CORPUSCULAR VOLUME 97.9 fL (79-99); MONOCYTES % (AUTO) 7.8 % (3.0-13.0); NEUTROPHILS % (AUTO) 67.9 % (40.0-77.0); NUCLEATED RED BLOOD CELLS 0.1 % (0.0-0.19); PLATELET COUNT (AUTO) 114 K/uL (130-400); RED BLOOD CELL COUNT(AUTO) 3.05 MIL/uL (4.50-6.20); RED CELL DISTRIBUTION WIDTH 14.4 % (11.0-15.5)
[2019-01-18 20:29] LABS: INR 0.99 (0.85-1.15); PARTIAL THROMBOPLASTIN TIME 28.7 SEC (26.3-35.5); PROTHROMBIN TIME 10.4 SEC (9.6-11.6)
[2019-01-18 20:34] LABS: ALBUMIN 2.8 g/dL (3.5-5.0); BILIRUBIN,TOTAL 0.4 mg/dL (0.2-1.0)
[2019-01-18] MEDS ORDERED: ONDANSETRON HCL 4 MG/2 ML VIAL ONE (21:21)
[2019-01-18] MEDS ORDERED: INSULIN HUMULIN R 100 UNIT/ML 3ML ONE (21:22)
[2019-01-18] MEDS ORDERED: MORPHINE SULFATE 4 MG/1ML SYG IV PRN (21:30)
[2019-01-18] MEDS: NITROGLYCERIN 1GM/1 INCH PACKET TD SCH (21:30)
[2019-01-18] MEDS ORDERED: ACETAMINOPHEN 325 MG TAB PO PRN (21:30)
--- NOTE | 2019-01-18 22:10 | NUR ---
PATIENT ARRIVED TO ROOM, ORIENTATED TO CALL SHAY AND ROOM. DENIES ANY COMPLAINTS OF PAIN OR DISCOMFORT AT PRESENT.
[2019-01-18 22:21] VITALS: BP 140/59
[2019-01-18 23:29] VITALS: BP 137/52
[2019-01-19] MEDS: ACETAMINOPHEN 325 MG TAB PO PRN ×3 (00:29→08:52)
--- NOTE | 2019-01-19 00:30 | NUR ---
PATIENT COMPLAIN OF PAIN IN LEFT UPPER EPIGASTRIC AREA OF ABDOMEN. MEDICATED FOR PAIN PER ORDERS.
[2019-01-19 04:04] VITALS: BP 130/68
[2019-01-19] MEDS: NITROGLYCERIN 1GM/1 INCH PACKET TD SCH ×3 (05:22→20:23)
[2019-01-19] MEDS: LEVOTHYROXINE 100 MCG TABLET PO SCH (06:33)
[2019-01-19 08:00] VITALS: BP 115/58
[2019-01-19] MEDS: FLUOXETINE HCL 10 MG CAPSULE PO SCH (08:49)
[2019-01-19] MEDS: FOLIC ACID/VITAMIN B COMP W-C 1 MG CAPSULE PO SCH (08:49)
[2019-01-19] MEDS: METOPROLOL TARTRATE 50 MG TAB PO SCH ×2 (08:49→20:19)
[2019-01-19] MEDS: ASPIRIN 325 MG TABLET PO SCH (08:49)
[2019-01-19] MEDS: CALCIUM ACETATE 667 MG CAPSULE PO SCH ×3 (08:49→17:17)
[2019-01-19] MEDS: FAMOTIDINE/PF 20 MG/2 ML VIAL IV SCH ×2 (08:49→20:19)
[2019-01-19] MEDS: OSELTAMIVIR PHOSPHATE 75 MG CAP PO SCH ×2 (08:49→20:19)
[2019-01-19] MEDS: ALLOPURINOL 100 MG TABLET PO SCH (08:49)
[2019-01-19] MEDS: CLOPIDOGREL BISULFATE 75 MG TAB PO SCH (08:49)
[2019-01-19] MEDS: AMLODIPINE BESYLATE 5 MG TAB PO SCH (08:49)
[2019-01-19] MEDS ORDERED: METOPROLOL TARTRATE 50 MG TAB PO SCH (09:00)
[2019-01-19 11:39] VITALS: BP 109/50
[2019-01-19 16:00] VITALS: BP 111/53
[2019-01-19 19:35] VITALS: BP 128/57
--- NOTE | 2019-01-19 19:35 | NUR ---
DR RIVERA HERE TO SEE PATIENT. ASKED DR RIVERA REGARDING METOPROL AND HEART RATE IN 50 DR RIVERA STATED OKAY TO GIVE METOPROL.
[2019-01-19] MEDS ORDERED: SIMVASTATIN 20 MG TABLET PO SCH (21:00)
[2019-01-19 23:28] VITALS: BP 128/60
[2019-01-20] MEDS: ACETAMINOPHEN 325 MG TAB PO PRN (03:29)
[2019-01-20 03:53] VITALS: BP 143/66
[2019-01-20] MEDS: NITROGLYCERIN 1GM/1 INCH PACKET TD SCH (05:11)
[2019-01-20] MEDS: LEVOTHYROXINE 100 MCG TABLET PO SCH (06:11)
[2019-01-20 07:37] VITALS: BP 121/57
[2019-01-20] MEDS ORDERED: NITROGLYCERIN 1GM/1 INCH PACKET TD SCH (08:43)
[2019-01-20] MEDS ORDERED: FAMOTIDINE/PF 20 MG/2 ML VIAL IV SCH (08:44)
[2019-01-20] MEDS ORDERED: RENAL DOSE IV SCH (08:45)
[2019-01-20] MEDS ORDERED: OSEL30CA PO (08:52)
[2019-01-20] MEDS ORDERED: PRED20TA3 PO (08:52)
[2019-01-20] MEDS ORDERED: COMPOUND PO MISCELLANEOUS 1 EACH MISC MISC PRN (09:00)
[2019-01-20] MEDS ORDERED: PREDNISONE 20 MG TABLET PO SCH (09:00)
[2019-01-20] MEDS ORDERED: OSELTAMIVIR SUSP 15 MG/ML (6 CAPS/29ML) PO SCH ×2 (09:00)
[2019-01-20] MEDS: ALLOPURINOL 100 MG TABLET PO SCH (09:09)
[2019-01-20] MEDS: AMLODIPINE BESYLATE 5 MG TAB PO SCH (09:09)
[2019-01-20] MEDS: FOLIC ACID/VITAMIN B COMP W-C 1 MG CAPSULE PO SCH (09:09)
[2019-01-20] MEDS: METOPROLOL TARTRATE 50 MG TAB PO SCH (09:10)
[2019-01-20] MEDS: CALCIUM ACETATE 667 MG CAPSULE PO SCH (09:10)
[2019-01-20] MEDS: ASPIRIN 325 MG TABLET PO SCH (09:10)
[2019-01-20] MEDS: CLOPIDOGREL BISULFATE 75 MG TAB PO SCH (09:11)
[2019-01-20] MEDS: FLUOXETINE HCL 10 MG CAPSULE PO SCH (09:11)
[2019-01-20 11:20] VITALS: BP 122/50
--- NOTE | 2019-01-20 13:00 | NUR ---
Patient was discharged at 1300. Discharge instructions and follow up appointments were given. Patient had no further questions. IV was removed with no complications. Celi wheeled patient out to private vehicle.
== END 2019-01-20 13:00 | disposition home or self-care (01) ==
LOC: EDH 19:26 → EDHIP 21:10 → 2DH 22:36
PROVIDERS: ADMIT Hospitalist; ATTEND Hospitalist
DX: R07.89 Other chest pain (principal); I12.0 Hypertensive chronic kidney disease with stage 5 chronic kidney disease or end stage renal disease; N18.6 End stage renal disease; E03.9 Hypothyroidism, unspecified; E11.22 Type 2 diabetes mellitus with diabetic chronic kidney disease; E11.51 Type 2 diabetes mellitus with diabetic peripheral angiopathy without gangrene; E11.621 Type 2 diabetes mellitus with foot ulcer; L97.509 Non-pressure chronic ulcer of other part of unspecified foot with unspecified severity; E78.00 Pure hypercholesterolemia, unspecified; E78.5 Hyperlipidemia, unspecified; G47.33 Obstructive sleep apnea (adult) (pediatric); I25.10 Atherosclerotic heart disease of native coronary artery without angina pectoris; J10.1 Influenza due to other identified influenza virus with other respiratory manifestations; K70.30 Alcoholic cirrhosis of liver without ascites; Z89.431 Acquired absence of right foot; Z99.2 Dependence on renal dialysis; Z79.4 Long term (current) use of insulin; Z82.0 Family history of epilepsy and other diseases of the nervous system; Z82.49 Family history of ischemic heart disease and other diseases of the circulatory system; Z82.5 Family history of asthma and other chronic lower respiratory diseases; Z83.3 Family history of diabetes mellitus; Z82.3 Family history of stroke; Z88.8 Allergy status to other drugs, medicaments and biological substances
CPT/HCPCS: 36415; 71045; 80053; 82550; 83690; 84484 ×2; 85025; 85610; 85730; 87804 ×2; 93005; 96374; 96376 ×2; 99284; G0378 ×40; J1815; J2405; J3490 ×3

== ENCOUNTER 2019-01-24 22:33 | Inpatient (IN) | payer MEDICARE ==
[~2019-01-24] VITALS: Ht 162.6 cm; Wt 68.5 kg
[~2019-01-24 22:33] MED LIST changes: +OSEL30CA PO; +PRED20TA3 PO
[2019-01-24] MEDS ORDERED: ONDANSETRON HCL 4 MG/2 ML VIAL ONE (22:44)
[2019-01-24] MEDS ORDERED: MAGNESIUM HYDROXIDE 30 ML/UDCUP ONE (23:14)
[2019-01-24] MEDS ORDERED: LIDOCAINE HCL 2% VISCOUS 15 ML UDCUP ONE (23:14)
[2019-01-24 23:20] LABS: BASOPHILS % (AUTO) 0.3 % (0.0-5.0); HEMATOCRIT 31.1 % (42-54); LYMPHOCYTES % (AUTO) 6.5 % (21.0-51.0); MEAN CORPUSCULAR HEMOGLOBIN 32.9 pg (27.0-33.0); MEAN CORPUSCULAR HGB CONC 33.5 g/dL (32.0-36.0); MEAN CORPUSCULAR VOLUME 98.1 fL (79-99); MONOCYTES % (AUTO) 7.3 % (3.0-13.0); NEUTROPHILS % (AUTO) 85.9 % (40.0-77.0); PLATELET COUNT (AUTO) 149 K/uL (130-400); RED BLOOD CELL COUNT(AUTO) 3.17 MIL/uL (4.50-6.20); RED CELL DISTRIBUTION WIDTH 14.9 % (11.0-15.5); WHITE BLOOD COUNT (AUTO) 8.4 K/uL (4.8-10.8)
[2019-01-24] MEDS ORDERED: METOCLOPRAMIDE 10 MG/2 ML VIAL ONE (23:21)
[2019-01-24] MEDS ORDERED: ALBUTEROL SULFATE 0.083% 2.5 MG/3 ML INH IH ONE (23:33)
[2019-01-24 23:34] LABS: BILIRUBIN,TOTAL 0.6 mg/dL (0.2-1.0); INR 1.06 (0.85-1.15); PARTIAL THROMBOPLASTIN TIME 31.4 SEC (26.3-35.5); POTASSIUM 5.5 mmol/L (3.5-5.1); PROTHROMBIN TIME 11.1 SEC (9.6-11.6); TOTAL PROTEIN, SERUM 7.5 g/dL (6.0-8.3)
[2019-01-24 23:46] LABS: CREATININE 8.9 mg/dL (0.5-1.5)
[2019-01-24 23:47] LABS: B-TYPE NATRIURETIC PEPTIDE 2640 pg/mL (0-100)
[2019-01-25] MEDS ORDERED: FUROSEMIDE 10 MG/ML 2ML VIAL ONE (01:15)
[2019-01-25] MEDS ORDERED: LEVOFLOXACIN 500 MG/D5W 100 ML 100 ML ONE (01:16)
[2019-01-25] MEDS ORDERED: CEFTRIAXONE SODIUM 1 GM ONE (01:16)
[2019-01-25] MEDS ORDERED: ACETAMINOPHEN EXTRA STRENGTH 500 MG TABLET ONE (01:16)
[2019-01-25] MEDS ORDERED: OSELTAMIVIR PHOSPHATE 30 MG PO SCH (01:30)
[2019-01-25] MEDS ORDERED: HYDRALAZINE HCL 20 MG/ML VIAL IV PRN (01:30)
[2019-01-25] MEDS ORDERED: AZITHROMYCIN 500MG+NS 250ML 250 ML IV SCH (01:30)
[2019-01-25] MEDS ORDERED: MORPHINE SULFATE 4 MG/1ML SYG IV PRN (01:30)
[2019-01-25] MEDS ORDERED: ACETAMINOPHEN 325 MG TAB PO PRN ×2 (01:30)
[2019-01-25] MEDS ORDERED: CEFTRIAXONE SODIUM 1 GM IV SCH (03:00)
[2019-01-25] MEDS: IPRATROPIUM/ALBUTEROL SULFATE 3 ML SOLUTION IH SCH ×4 (06:27→23:47)
[2019-01-25] MEDS: LEVOTHYROXINE 100 MCG TABLET PO SCH (07:30)
[2019-01-25] MEDS ORDERED: ACETAMINOPHEN 325 MG TAB ONE ×2 (08:16→14:33)
[2019-01-25] MEDS ORDERED: ONDANSETRON HCL 4 MG/2 ML VIAL ONE ×2 (08:45→15:05)
[2019-01-25] MEDS ORDERED: COMPOUND PO MISCELLANEOUS 1 EACH MISC MISC PRN (08:45)
[2019-01-25] MEDS: METOPROLOL TARTRATE 50 MG TAB PO SCH ×2 (09:00→21:16)
[2019-01-25] MEDS: ALLOPURINOL 100 MG TABLET PO SCH (09:00)
[2019-01-25] MEDS: FOLIC ACID/VITAMIN B COMP W-C 1 MG CAPSULE PO SCH (09:00)
[2019-01-25] MEDS: AMLODIPINE BESYLATE 5 MG TAB PO SCH (09:00)
[2019-01-25] MEDS: FAMOTIDINE/PF 20 MG/2 ML VIAL IV SCH ×2 (09:00→21:15)
[2019-01-25] MEDS: FLUOXETINE HCL 20 MG CAPSULE PO SCH (09:00)
[2019-01-25] MEDS: CLOPIDOGREL BISULFATE 75 MG TAB PO SCH (09:00)
[2019-01-25] MEDS: PREDNISONE 20 MG TABLET PO SCH (09:00)
[2019-01-25] MEDS: OSELTAMIVIR PHOSPHATE 300 MG, COMPOUNDING VEHICLE SF NO.9 50 ML PO SCH ×2 (09:00)
[2019-01-25] MEDS ORDERED: CLOPIDOGREL BISULFATE 75 MG TAB ONE (09:25)
[2019-01-25] MEDS ORDERED: PREDNISONE 20 MG TABLET ONE (09:25)
[2019-01-25] MEDS ORDERED: AMLODIPINE BESYLATE 5 MG TAB PO ONE (09:25)
[2019-01-25] MEDS ORDERED: METOPROLOL TARTRATE 50 MG TAB ONE (09:26)
[2019-01-25] MEDS ORDERED: FAMOTIDINE/PF 20 MG/2 ML VIAL IV ONE (09:34)
[2019-01-25 09:35] LABS: ABG BASE EXCESS -3.9 mmol/L (-2.0-3.0); ABG HCO3 19.9 mmol/L (21.0-28.0); ABG OXYGEN SATURATION 98.3 % (95.0-99.0); ABG PCO2 33 mmHg (35-48)
[2019-01-25] MEDS: LEVOFLOXACIN 500 MG/D5W 100 ML 100 ML IV SCH (10:31)
[2019-01-25] MEDS ORDERED: VANCOMYCIN 1GM+NS 250ML 250 ML IV SCH (10:45)
[2019-01-25] MEDS ORDERED: ZOSYN 3.375GM+NS 50ML 50 ML IV ONE (14:02)
[2019-01-25] MEDS ORDERED: VANCOMYCIN 1GM+NS 250ML 250 ML IV ONE (14:02)
[2019-01-25] MEDS: CALCIUM ACETATE 667 MG CAPSULE PO SCH (17:00)
[2019-01-25 17:18] VITALS: BP 120/58
--- NOTE | 2019-01-25 17:30 | NUR ---
POST HD: TOTAL FLUID REMOVED: 2.5L VS: BP: 116/55, HR: 71, RR:18, TEMP:98.4F Addendum: 01/25/19 at 1914 by ADRIANNA JAIN RN RN Amended: Links added.
[2019-01-25 20:10] VITALS: BP 116/64
[2019-01-25] MEDS: SIMVASTATIN 40 MG PO SCH (21:00)
[2019-01-25] MEDS: ZOSYN 3.375GM+NS 50ML 50 ML IV SCH (21:14)
[2019-01-26] VITALS: BP 112/82
[2019-01-26] MEDS: ONDANSETRON HCL 4 MG/2 ML VIAL IV PRN ×2 (00:23→11:26)
[2019-01-26 04:41] VITALS: BP 106/54
[2019-01-26] MEDS: LEVOTHYROXINE 100 MCG TABLET PO SCH (06:14)
[2019-01-26] MEDS: IPRATROPIUM/ALBUTEROL SULFATE 3 ML SOLUTION IH SCH ×4 (06:58→23:49)
[2019-01-26 07:56] VITALS: BP 131/57
[2019-01-26] MEDS: FAMOTIDINE/PF 20 MG/2 ML VIAL IV SCH ×2 (10:27→20:02)
[2019-01-26] MEDS: PREDNISONE 20 MG TABLET PO SCH (10:27)
[2019-01-26] MEDS: FOLIC ACID/VITAMIN B COMP W-C 1 MG CAPSULE PO SCH (10:28)
[2019-01-26] MEDS: FLUOXETINE HCL 20 MG CAPSULE PO SCH (10:28)
[2019-01-26] MEDS: AMLODIPINE BESYLATE 5 MG TAB PO SCH (10:28)
[2019-01-26] MEDS: METOPROLOL TARTRATE 50 MG TAB PO SCH ×2 (10:28→20:02)
[2019-01-26] MEDS: CLOPIDOGREL BISULFATE 75 MG TAB PO SCH (10:28)
[2019-01-26] MEDS: ALLOPURINOL 100 MG TABLET PO SCH (10:28)
[2019-01-26] MEDS: ZOSYN 3.375GM+NS 50ML 50 ML IV SCH ×2 (10:32→20:02)
[2019-01-26] MEDS: CALCIUM ACETATE 667 MG CAPSULE PO SCH ×3 (10:32→17:40)
[2019-01-26] MEDS: OSELTAMIVIR PHOSPHATE 300 MG, COMPOUNDING VEHICLE SF NO.9 50 ML PO SCH ×2 (10:39)
[2019-01-26 11:48] VITALS: BP 121/84
[2019-01-26 15:29] VITALS: BP 96/63
--- NOTE | 2019-01-26 17:05 | NUR ---
cm note met with patient and states resides athome with mother and daughter, pt uses walker for ambulation, goes to HD at [facility]. sister abbie. has provider 3hrs daily. dc plan is back [place] no dc needs. Addendum: 01/26/19 at 1707 by NANDO HAMM CM Amended: Links added.
[2019-01-26 19:46] VITALS: BP 121/57
[2019-01-26] MEDS: SIMVASTATIN 40 MG PO SCH (19:55)
[2019-01-27] VITALS (8 sets, daily range): BP systolic 100–139; BP diastolic 54–68
[2019-01-27] MEDS: LEVOTHYROXINE 100 MCG TABLET PO SCH (05:19)
[2019-01-27] MEDS: IPRATROPIUM/ALBUTEROL SULFATE 3 ML SOLUTION IH SCH ×4 (06:25→23:41)
[2019-01-27] MEDS: CALCIUM ACETATE 667 MG CAPSULE PO SCH ×3 (08:00→16:19)
--- NOTE | 2019-01-27 09:26 | NUR ---
U/S GUIDED PARCENTISIS PERFORMED BY DR. CLAY. PUNCTURE SITE TO RLQ PATIENT TOLERATED PROCEDURE WELL. TOTAL ASCITES FLUID REMOVED 4.8 LTS. END OF PROCEDUREAT 0920, CATHETER REMOVED DRESSING APPLIED. NO BLEEDING NOTED, REPORT GIVEN TO HEATHER SHAFER RN . PATIENT TRANSPORTED TO ROOM 224, PATIENT WILL RECEIVE ALBUMIN BACK IN HIS ROOM. PATIENT SENT VIA WHEELCHAIR AAOX3 IN NO DISTRESS.
[2019-01-27] MEDS ORDERED: ALBUMIN (HUMAN) 25% 100 ML IV ONE (09:30)
--- NOTE | 2019-01-27 09:30 | NUR ---
AM ASSESSMENT PT SITTING IN BED, WATCHING TV. DROPLET ISOLATION. SOB ON EXERTION. NO DISTRESS NOTED. O2 NC @ 3L. DENIES CHEST PAIN OR DISCOMFORT. DENIES PALPITATIONS. TELE: SR 60s. DENIES N/V. (+) DIARRHEA. NOTIFIED. RT ARM PRECAUTIONS. CAPRICE AV GRAFT, (+) THRILL/ (+) BRUIT. HD TTS. PARACENTESIS TODAY, 4.6L REMOVED. UP W/ASSISTANCE. INSTRUCTED TO CALL FOR ASSISTANCE. CALL JASPAL W/IN REACH.
[2019-01-27] MEDS: PREDNISONE 20 MG TABLET PO SCH (10:34)
[2019-01-27] MEDS: ALLOPURINOL 100 MG TABLET PO SCH (10:34)
[2019-01-27] MEDS: FOLIC ACID/VITAMIN B COMP W-C 1 MG CAPSULE PO SCH (10:34)
[2019-01-27] MEDS: FLUOXETINE HCL 20 MG CAPSULE PO SCH (10:34)
[2019-01-27] MEDS: CLOPIDOGREL BISULFATE 75 MG TAB PO SCH (10:34)
[2019-01-27] MEDS: AMLODIPINE BESYLATE 5 MG TAB PO SCH (10:34)
[2019-01-27] MEDS: METOPROLOL TARTRATE 50 MG TAB PO SCH ×2 (10:34→21:07)
[2019-01-27] MEDS: ZOSYN 3.375GM+NS 50ML 50 ML IV SCH ×2 (10:37→21:07)
[2019-01-27] MEDS: OSELTAMIVIR PHOSPHATE 300 MG, COMPOUNDING VEHICLE SF NO.9 50 ML PO SCH ×2 (10:37)
[2019-01-27] MEDS: LEVOFLOXACIN 500 MG/D5W 100 ML 100 ML IV SCH (10:37)
[2019-01-27] MEDS ORDERED: VANCOMYCIN 500MG+NS 100ML 100 ML IV SCH (10:45)
[2019-01-27] MEDS ORDERED: LIDOCAINE HCL 1% 20 ML VIAL ONE (10:53)
--- NOTE | 2019-01-27 16:26 | NUR ---
Nutrition intervention: Nutrition notification as per pt's request. Pt reports poor po intake d/t feeling feel. Pt requesting small snacks between meals as he gets hungry between meals being provided during hospital admission. Pt reports diarrhea which FELIX Sunshine is aware of. Recommendations: Snacks TID between meals. PROMOD 30mL BID between meals. Addendum: 01/27/19 at [address] Amended: Links added.
[2019-01-27] MEDS ORDERED: LOPERAMIDE HCL 2 MG CAP PO SCH (17:30)
[2019-01-27] MEDS: SIMVASTATIN 40 MG PO SCH (21:00)
[2019-01-27] MEDS: FAMOTIDINE 20MG TAB 20 MG TAB PO SCH (21:07)
[2019-01-28 03:43] VITALS: BP 122/61
[2019-01-28 04:03] LABS: HEMATOCRIT 27.8 % (42-54); MEAN CORPUSCULAR HEMOGLOBIN 32.7 pg (27.0-33.0); MEAN CORPUSCULAR HGB CONC 33.9 g/dL (32.0-36.0); MEAN CORPUSCULAR VOLUME 96.4 fL (79-99); PLATELET COUNT (AUTO) 110 K/uL (130-400); RED BLOOD CELL COUNT(AUTO) 2.88 MIL/uL (4.50-6.20); RED CELL DISTRIBUTION WIDTH 15.1 % (11.0-15.5); WHITE BLOOD COUNT (AUTO) 3.6 K/uL (4.8-10.8)
[2019-01-28 04:15] LABS: BAND NEUTROPHILS % (MANUAL) 4 % (0-2); LYMPHOCYTES % (MANUAL) 9 % (22-44); MAN.DIFF COMMENT-IMPRESSION MANUAL DIFFERENTIAL; MONOCYTES % (MANUAL) 3 % (2-9); SEGMENTED NEUTROPHILS % 84 % (40-70)
[2019-01-28 04:17] LABS: PLATELET MORPHOLOGY COMMENT SLIGHTLY DECREASED
[2019-01-28 04:20] LABS: PHOSPHORUS 8.9 mg/dL (2.5-4.9)
[2019-01-28 04:27] LABS: CREATININE 11.3 mg/dL (0.5-1.5)
[2019-01-28] MEDS: IPRATROPIUM/ALBUTEROL SULFATE 3 ML SOLUTION IH SCH ×3 (06:21→18:26)
[2019-01-28] MEDS: LEVOTHYROXINE 100 MCG TABLET PO SCH (06:26)
[2019-01-28 07:26] VITALS: BP 127/68
[2019-01-28] MEDS: CALCIUM ACETATE 667 MG CAPSULE PO SCH ×3 (08:00→17:00)
--- NOTE | 2019-01-28 08:00 | NUR ---
AM ASSESSMENT PT LAYING IN BED, HOB ELEVATED 30 DEGREES, WATCHING TV. DROPLET ISOLATION. A/O X 3. SOB ON EXERTION. NO DISTRESS NOTED. O2 NC @ 3L. DENIES CHEST PAIN OR DISCOMFORT. DENIES PALPITATIONS. TELE: SR 60s. DENIES N/V AND/OR DIARRHEA. LAST EPISODE OF DIARRHEA 01/27/19. CAPRICE AV GRAFT (+) THRILL/(+) BRUIT. RT ARM PRECAUTIONS IN PLACE. PT TO GET HD TODAY. UP W/ASSISTANCE. NIKKY @ BEDSIDE. INSTRUCTED TO CALL FOR ASSISTANCE. CALL JASPAL W/IN REACH. Addendum: 01/28/19 at 1408 by ALEX KIRBY RN RN Amended: Links added.
[2019-01-28] MEDS: CLOPIDOGREL BISULFATE 75 MG TAB PO SCH (09:00)
[2019-01-28] MEDS: FOLIC ACID/VITAMIN B COMP W-C 1 MG CAPSULE PO SCH (09:00)
[2019-01-28] MEDS: FAMOTIDINE 20MG TAB 20 MG TAB PO SCH (09:00)
[2019-01-28] MEDS: ZOSYN 3.375GM+NS 50ML 50 ML IV SCH (09:00)
[2019-01-28] MEDS: PREDNISONE 20 MG TABLET PO SCH (09:00)
[2019-01-28] MEDS: METOPROLOL TARTRATE 50 MG TAB PO SCH ×2 (09:00→21:32)
[2019-01-28] MEDS: ALLOPURINOL 100 MG TABLET PO SCH (09:00)
[2019-01-28] MEDS: FLUOXETINE HCL 20 MG CAPSULE PO SCH (09:00)
[2019-01-28] MEDS: AMLODIPINE BESYLATE 5 MG TAB PO SCH (09:00)
[2019-01-28] MEDS: OSELTAMIVIR PHOSPHATE 300 MG, COMPOUNDING VEHICLE SF NO.9 50 ML PO SCH ×2 (09:00)
[2019-01-28 11:29] VITALS: BP 120/61
[2019-01-28 16:16] VITALS: BP 122/58
--- NOTE | 2019-01-28 20:45 | NUR ---
DIALYSIS IN PROGRESS. PATIENT PENDING DISCHARGE AFTER DIALYSIS.
[2019-01-28] MEDS: SIMVASTATIN 40 MG PO SCH (21:00)
--- NOTE | 2019-01-28 21:20 | NUR ---
DIALYSIS COMPLETED. 2 LITERS REMOVED.
--- NOTE | 2019-01-28 21:40 | NUR ---
DISCHARGE INSTRUCTIONS GIVEN. TELE PACK AND PERIPHERAL IV REMOVED.
--- NOTE | 2019-01-28 22:00 | NUR ---
PATIENT DISCHARGED TO HOME. PATIENT ACCOMPANIED BY DAUGHTER. PATIENT TAKEN TO E.R. EXIT VIA WHEELCHAIR, BY NINOSKA ARZATE.
== END 2019-01-28 22:05 | disposition home or self-care (01) | DRG 871 ==
LOC: EDH 22:33 → EDHIP 01-25 01:15 → 2DH 01-25 16:30
PROVIDERS: ADMIT Internal Medicine; ATTEND Internal Medicine
PROC: 5A1D70Z Performance of Urinary Filtration, Intermittent, Less than 6 Hours Per Day (ICD-10-PCS; principal; 2019-01-25)
PROC: 0W9G30Z Drainage of Peritoneal Cavity with Drainage Device, Percutaneous Approach (ICD-10-PCS; 2019-01-27)
PROC: 5A1D70Z Performance of Urinary Filtration, Intermittent, Less than 6 Hours Per Day (ICD-10-PCS; 2019-01-28)
DX: A41.89 Other specified sepsis (principal); J96.01 Acute respiratory failure with hypoxia; N18.6 End stage renal disease; J81.0 Acute pulmonary edema; J18.0 Bronchopneumonia, unspecified organism; I12.0 Hypertensive chronic kidney disease with stage 5 chronic kidney disease or end stage renal disease; J44.0 Chronic obstructive pulmonary disease with (acute) lower respiratory infection; K76.6 Portal hypertension; R18.8 Other ascites; R65.20 Severe sepsis without septic shock; E11.22 Type 2 diabetes mellitus with diabetic chronic kidney disease; E11.21 Type 2 diabetes mellitus with diabetic nephropathy; E11.51 Type 2 diabetes mellitus with diabetic peripheral angiopathy without gangrene; E11.65 Type 2 diabetes mellitus with hyperglycemia; M10.9 Gout, unspecified; F41.9 Anxiety disorder, unspecified; D64.9 Anemia, unspecified; E03.9 Hypothyroidism, unspecified; J10.89 Influenza due to other identified influenza virus with other manifestations; E78.2 Mixed hyperlipidemia; E87.5 Hyperkalemia; K74.60 Unspecified cirrhosis of liver; F41.8 Other specified anxiety disorders; Z79.4 Long term (current) use of insulin; Z99.2 Dependence on renal dialysis; Z91.19 Patient's noncompliance with other medical treatment and regimen; Z89.422 Acquired absence of other left toe(s); Z89.421 Acquired absence of other right toe(s); Z88.8 Allergy status to other drugs, medicaments and biological substances; Z83.3 Family history of diabetes mellitus; Z83.6 Family history of other diseases of the respiratory system; Z82.49 Family history of ischemic heart disease and other diseases of the circulatory system
CPT/HCPCS: 36415; 36600; 49083; 71045; 80048; 80053; 80202; 82550; 82803; 82948; 83605; 83690; 83880; 84100; 84484; 85025; 85610; 85730; 87040; 90935; 93005; 94640; 94664; G0378; J0696; J1940; J1956; J2405; J2543; J2765; J3370; J3490; P9046

== ENCOUNTER → 2019-07-31 | Outpatient (CLI) | payer MEDICARE ==
[~2019-07-31] MED LIST changes: -CLOP75TA14 PO; +CLOP75TA32 PO; -FLUO40CA7 PO; -FOLI0.8T43 PO; -ONDA4TAB9 PO; -OSEL30CA PO; +PANT40TA25 PO; -PRED20TA3 PO
== END | disposition home or self-care (01) ==
LOC: SHCH 13:58
PROVIDERS: ATTEND Internal Medicine Cardiovascular Disease
DX: I34.8 Other nonrheumatic mitral valve disorders (principal); I11.9 Hypertensive heart disease without heart failure
CPT/HCPCS: 93306

== ENCOUNTER 2019-09-24 15:33 | Emergency (ER) | payer MEDICARE ==
[2019-09-24] MEDS ORDERED: DOXYCYCLINE 100MG+NS 250ML 250 ML IV ONE (15:52)
[2019-09-24 16:01] LABS: EOSINOPHILS % (AUTO) 3.7 % (0.0-8.0); HEMATOCRIT 33.3 % (42-54); LYMPHOCYTES % (AUTO) 17.3 % (21.0-51.0); MEAN CORPUSCULAR HEMOGLOBIN 31.6 pg (27.0-33.0); MEAN CORPUSCULAR HGB CONC 33.2 g/dL (32.0-36.0); PLATELET COUNT (AUTO) 157 K/uL (130-400); RED CELL DISTRIBUTION WIDTH 16.6 % (11.0-15.5); WHITE BLOOD COUNT (AUTO) 6.9 K/uL (4.8-10.8)
[2019-09-24 16:10] LABS: CREATININE 7.3 mg/dL (0.5-1.5)
[2019-09-24 16:15] LABS: BILIRUBIN,TOTAL 0.6 mg/dL (0.2-1.0); TOTAL PROTEIN, SERUM 8.3 g/dL (6.0-8.3)
== END 2019-09-24 18:55 | disposition home or self-care (01) ==
LOC: EDH 15:33
DX: L03.011 Cellulitis of right finger (principal); E78.5 Hyperlipidemia, unspecified; I12.0 Hypertensive chronic kidney disease with stage 5 chronic kidney disease or end stage renal disease; E11.22 Type 2 diabetes mellitus with diabetic chronic kidney disease; N18.6 End stage renal disease; E07.9 Disorder of thyroid, unspecified; Z88.1 Allergy status to other antibiotic agents; Z88.8 Allergy status to other drugs, medicaments and biological substances; Z99.2 Dependence on renal dialysis
CPT/HCPCS: 36415; 80053; 83605; 85025; 93005; 96374; 99285; J3490

== ENCOUNTER 2019-11-11 16:08 | Emergency (ER) | payer MEDICARE ==
[2019-11-11] MEDS ORDERED: ACETAMINOPHEN 325 MG TAB ONE (17:29)
[2019-11-11 17:37] LABS: BASOPHILS % (AUTO) 0.3 % (0.0-5.0); EOSINOPHILS % (AUTO) 2.4 % (0.0-8.0); HEMATOCRIT 35.6 % (42-54); MEAN CORPUSCULAR HEMOGLOBIN 30.9 pg (27.0-33.0); MEAN CORPUSCULAR HGB CONC 31.5 g/dL (32.0-36.0); MEAN CORPUSCULAR VOLUME 98.3 fL (79-99); MONOCYTES % (AUTO) 6.3 % (3.0-13.0); NEUTROPHILS % (AUTO) 78.4 % (40.0-77.0); PLATELET COUNT (AUTO) 141 K/uL (130-400); RED BLOOD CELL COUNT(AUTO) 3.62 MIL/uL (4.50-6.20); RED CELL DISTRIBUTION WIDTH 15.3 % (11.0-15.5); WHITE BLOOD COUNT (AUTO) 3.3 K/uL (4.8-10.8)
[2019-11-11 17:45] LABS: CREATININE 5.2 mg/dL (0.5-1.5); POTASSIUM 4.5 mmol/L (3.5-5.1)
[2019-11-11 17:49] LABS: BILIRUBIN,TOTAL 0.6 mg/dL (0.2-1.0)
[2019-11-11 17:50] LABS: ALBUMIN 3.3 g/dL (3.5-5.0); BILIRUBIN,DIRECT 0.3 mg/dL (0.0-0.3); TOTAL PROTEIN, SERUM 8.1 g/dL (6.0-8.3)
[2019-11-11 19:17] LABS: ERYTHROCYTE SEDIMENTATION RATE 45 MM/HR (0-15)
[2019-11-11] MEDS ORDERED: SODIUM CHLORIDE 0.9% 50 ML IV ONE (21:56)
== END 2019-11-11 21:47 | disposition home or self-care (01) ==
LOC: EDH 16:08
DX: J21.9 Acute bronchiolitis, unspecified (principal); S62.501G Fracture of unspecified phalanx of right thumb, subsequent encounter for fracture with delayed healing; E11.621 Type 2 diabetes mellitus with foot ulcer; L97.529 Non-pressure chronic ulcer of other part of left foot with unspecified severity; E11.22 Type 2 diabetes mellitus with diabetic chronic kidney disease; I12.0 Hypertensive chronic kidney disease with stage 5 chronic kidney disease or end stage renal disease; N18.6 End stage renal disease; Z99.2 Dependence on renal dialysis; Z98.890 Other specified postprocedural states; Z88.1 Allergy status to other antibiotic agents; Z88.8 Allergy status to other drugs, medicaments and biological substances; X58.XXXD Exposure to other specified factors, subsequent encounter
CPT/HCPCS: 36415; 71046; 73140; 80048; 80076; 82550; 83605; 84145; 84146; 84484; 85025; 85651; 87040; 87077; 87186; 87804; 93005

== ENCOUNTER 2019-11-24 16:48 | Emergency (ER) | payer MEDICARE ==
[2019-11-24 17:51] LABS: BASOPHILS % (AUTO) 0.3 % (0.0-5.0); HEMATOCRIT 40.4 % (42-54); LYMPHOCYTES % (AUTO) 24.9 % (21.0-51.0); MEAN CORPUSCULAR HEMOGLOBIN 30.7 pg (27.0-33.0); MEAN CORPUSCULAR HGB CONC 32.2 g/dL (32.0-36.0); MEAN CORPUSCULAR VOLUME 95.3 fL (79-99); NEUTROPHILS % (AUTO) 67.5 % (40.0-77.0); PLATELET COUNT (AUTO) 146 K/uL (130-400); RED BLOOD CELL COUNT(AUTO) 4.24 MIL/uL (4.50-6.20); RED CELL DISTRIBUTION WIDTH 14.2 % (11.0-15.5); WHITE BLOOD COUNT (AUTO) 6.3 K/uL (4.8-10.8)
[2019-11-24 18:04] LABS: CREATININE 4.8 mg/dL (0.5-1.5); POTASSIUM 4.3 mmol/L (3.5-5.1)
[2019-11-24 18:09] LABS: INR 0.99 (0.85-1.15); PARTIAL THROMBOPLASTIN TIME 26.6 SEC (26.3-35.5); PROTHROMBIN TIME 10.4 SEC (9.6-11.6)
[2019-11-24 18:12] LABS: ALBUMIN 3.2 g/dL (3.5-5.0); BILIRUBIN,DIRECT 0.2 mg/dL (0.0-0.3); BILIRUBIN,TOTAL 0.4 mg/dL (0.2-1.0); TOTAL PROTEIN, SERUM 7.2 g/dL (6.0-8.3)
[2019-11-24 18:58] LABS: ERYTHROCYTE SEDIMENTATION RATE 22 MM/HR (0-15)
[2019-11-24] MEDS ORDERED: INSULIN HUMULIN R 100 UNIT/ML 3ML ONE (19:17)
[2019-11-24] MEDS ORDERED: BENZONATATE 100 MG CAPSULE PO ONE (20:43)
[2019-11-24] MEDS ORDERED: NITROGLYCERIN 1GM/1 INCH PACKET TD ONE (20:43)
[2019-11-24] MEDS ORDERED: IPRATROPIUM/ALBUTEROL SULFATE 3 ML SOLUTION IH ONE (20:46)
[2019-11-24] MEDS ORDERED: LEVOFLOXACIN 500 MG TABLET ONE (21:40)
== END 2019-11-24 22:03 | disposition home or self-care (01) ==
LOC: EDH 16:48
DX: S62.521A Displaced fracture of distal phalanx of right thumb, initial encounter for closed fracture (principal); J20.9 Acute bronchitis, unspecified; E11.22 Type 2 diabetes mellitus with diabetic chronic kidney disease; I12.0 Hypertensive chronic kidney disease with stage 5 chronic kidney disease or end stage renal disease; N18.6 End stage renal disease; X58.XXXA Exposure to other specified factors, initial encounter; Y93.89 Activity, other specified; Y92.89 Other specified places as the place of occurrence of the external cause; Y99.8 Other external cause status; E11.621 Type 2 diabetes mellitus with foot ulcer
CPT/HCPCS: 36415; 71045; 73140; 80048; 80076; 82550; 82948; 83605; 83690; 84145; 84484; 85025; 85610; 85651; 85730; 87804 ×2; 93005; 94640; 96374; 99285; J1815

== ENCOUNTER 2020-02-10 10:15 | Inpatient (IN) | payer MEDICARE ==
[~2020-02-10] VITALS: Ht 162.6 cm; Wt 67.1 kg
[2020-02-10] MEDS ORDERED: ONDANSETRON HCL 4 MG/2 ML VIAL ONE (10:49)
[2020-02-10] MEDS ORDERED: SODIUM CHLORIDE 0.9% 500ML 500 ML IV ONE (10:50)
[2020-02-10 11:00] LABS: BASOPHILS % (AUTO) 0.5 % (0.0-5.0); EOSINOPHILS % (AUTO) 3.1 % (0.0-8.0); HEMATOCRIT 34.2 % (42-54); LYMPHOCYTES % (AUTO) 21.4 % (21.0-51.0); MEAN CORPUSCULAR HEMOGLOBIN 31.5 pg (27.0-33.0); MEAN CORPUSCULAR HGB CONC 31.9 g/dL (32.0-36.0); MEAN CORPUSCULAR VOLUME 98.8 fL (79-99); NEUTROPHILS % (AUTO) 68.7 % (40.0-77.0); PLATELET COUNT (AUTO) 102 K/uL (130-400); RED BLOOD CELL COUNT(AUTO) 3.46 MIL/uL (4.50-6.20); RED CELL DISTRIBUTION WIDTH 13.8 % (11.0-15.5); WHITE BLOOD COUNT (AUTO) 5.8 K/uL (4.8-10.8)
[2020-02-10 12:22] LABS: ALBUMIN 3.3 g/dL (3.5-5.0); BILIRUBIN,DIRECT 0.1 mg/dL (0.0-0.3); BILIRUBIN,TOTAL 0.4 mg/dL (0.2-1.0); TOTAL PROTEIN, SERUM 7.4 g/dL (6.0-8.3)
[2020-02-10 12:25] LABS: POTASSIUM 7.6 mmol/L (3.5-5.1)
[2020-02-10 12:26] LABS: CREATININE 10.1 mg/dL (0.5-1.5)
[2020-02-10] MEDS ORDERED: CALCIUM GLUCONATE 1 GM/10 ML VIAL IV ONE (12:29)
[2020-02-10] MEDS ORDERED: SODIUM BICARB 50MEQ 50ML VIAL ONE (12:30)
[2020-02-10] MEDS ORDERED: INSULIN HUMULIN R 100 UNIT/ML 3ML ONE (12:31)
[2020-02-10] MEDS ORDERED: DEXTROSE 50%-WATER 50 ML DISP.SYRIN IV ONE (12:31)
[2020-02-10] MEDS ORDERED: ZOSYN 3.375GM+NS 50ML 50 ML IV ONE (14:02)
[2020-02-10] MEDS ORDERED: IPRATROPIUM/ALBUTEROL SULFATE 3 ML SOLUTION IH ONE (14:52)
[2020-02-10] MEDS ORDERED: ONDANSETRON HCL 4 MG/2 ML VIAL IV PRN (15:30)
[2020-02-10] MEDS ORDERED: ACETAMINOPHEN 325 MG TAB PO PRN (15:30)
[2020-02-10] MEDS: DOXYCYCLINE 100MG+NS 250ML 250 ML IV SCH (16:45)
[2020-02-10] MEDS ORDERED: SODIUM CHLORIDE 0.9% 100 ML IV ONE (17:23)
[2020-02-10] MEDS ORDERED: SODIUM POLYSTYRENE SULFONATE 15 GM/60 ML ML PO SCH (17:45)
[2020-02-10] MEDS ORDERED: PANTOPRAZOLE 40 MG/VIAL IVP SCH (18:15)
[2020-02-10] MEDS ORDERED: FAMOTIDINE/PF 20 MG/2 ML VIAL IV SCH (21:00)
[2020-02-10] MEDS: CEFTRIAXONE SODIUM 1 GM IV SCH (21:00)
[2020-02-10] MEDS ORDERED: ACETAMINOPHEN 325 MG TAB ONE ×2 (22:10→22:40)
[2020-02-10] MEDS ORDERED: CEFTRIAXONE SODIUM 1 GM ONE ×2 (22:10→22:39)
[2020-02-10] MEDS ORDERED: METOPROLOL TARTRATE 50 MG TAB ONE ×2 (22:10→22:39)
[2020-02-10] MEDS ORDERED: SODIUM CHLORIDE 0.9% 50 ML IV ONE (22:11)
[2020-02-10 22:45] LABS: CREATININE 4.7 mg/dL (0.5-1.5); POTASSIUM 3.8 mmol/L (3.5-5.1)
[2020-02-11 01:30] VITALS: BP 155/68
[2020-02-11 03:43] VITALS: BP 153/65
[2020-02-11] MEDS: DOXYCYCLINE 100MG+NS 250ML 250 ML IV SCH ×2 (04:55→16:36)
[2020-02-11 05:38] LABS: BASOPHILS % (AUTO) 0.4 % (0.0-5.0); EOSINOPHILS % (AUTO) 1.9 % (0.0-8.0); HEMATOCRIT 27.4 % (42-54); LYMPHOCYTES % (AUTO) 23.9 % (21.0-51.0); MEAN CORPUSCULAR HEMOGLOBIN 31.2 pg (27.0-33.0); MEAN CORPUSCULAR HGB CONC 32.1 g/dL (32.0-36.0); MEAN CORPUSCULAR VOLUME 97.2 fL (79-99); MONOCYTES % (AUTO) 5.9 % (3.0-13.0); NEUTROPHILS % (AUTO) 67.7 % (40.0-77.0); PLATELET COUNT (AUTO) 87 K/uL (130-400); RED BLOOD CELL COUNT(AUTO) 2.82 MIL/uL (4.50-6.20); RED CELL DISTRIBUTION WIDTH 13.2 % (11.0-15.5); WHITE BLOOD COUNT (AUTO) 4.7 K/uL (4.8-10.8)
[2020-02-11] MEDS: HYDROMORPHONE HCL 2 MG/ML VIAL IVP PRN ×2 (05:38→21:01)
[2020-02-11 05:58] LABS: ALBUMIN 2.7 g/dL (3.5-5.0); BILIRUBIN,TOTAL 0.5 mg/dL (0.2-1.0); CREATININE 5.8 mg/dL (0.5-1.5); PHOSPHORUS 4.2 mg/dL (2.5-4.9); POTASSIUM 4.1 mmol/L (3.5-5.1); TOTAL PROTEIN, SERUM 6.2 g/dL (6.0-8.3)
[2020-02-11 07:30] VITALS: BP 159/64
[2020-02-11] MEDS: PANTOPRAZOLE SODIUM 80 MG in SODIUM CHLORIDE 0.9% 100 ML IV SCH ×2 (07:51→20:12)
[2020-02-11] MEDS: CEFTRIAXONE SODIUM 1 GM IV SCH ×2 (08:45→20:12)
[2020-02-11 12:00] VITALS: BP 154/65
[2020-02-11] MEDS ORDERED: ONDA-104 PO (12:08)
[2020-02-11] MEDS ORDERED: SIMV-43 PO (12:08)
[2020-02-11] MEDS ORDERED: FERR210T PO (12:08)
--- NOTE | 2020-02-11 13:01 | NUR ---
DCP CM met with pt discussed dc plans. Pt is assist with ADL's, lives at home with parents and daughter. Pt has a walker, wheelchair, provider 30-40hrs, goes to [facility]. Denies any other equipments/services. Feels safe to go back home, daughter able to assist with transportation as necessary. DC plan to home once stable. CM to cont to follow up. Addendum: 02/11/20 at 1310 by SARA NAVARRO LVN CM Amended: Links added.
[2020-02-11 16:00] VITALS: BP 137/63
[2020-02-11 20:00] VITALS: BP 173/66
[2020-02-12 00:38] VITALS: BP 159/61
[2020-02-12] MEDS: HYDROMORPHONE HCL 2 MG/ML VIAL IVP PRN ×3 (00:47→18:47)
--- NOTE | 2020-02-12 03:05 | NUR ---
SOB PATIENT COMPLAINS OF SOB AND CHEST DISCOMFORT. PATIENT ON TELEMETRY WITH NO CHANGES LUNG SOUNDS CLEAR TO UPPER LOBES AND DIMINISHED TO LOWER LOBES. BLOOD PRESSURE 159/66 HEART RATE 56 BPM. AJ USPS LETTER CARRIER NOTIFIED OF PATIENT CONDITION AND ORDERS WERE GIVEN AND CARRIED OUT.
[2020-02-12] MEDS ORDERED: IPRATROPIUM/ALBUTEROL SULFATE 3 ML SOLUTION IH PRN (03:15)
[2020-02-12 04:00] VITALS: BP 155/70
[2020-02-12] MEDS: DOXYCYCLINE 100MG+NS 250ML 250 ML IV SCH ×2 (04:45→16:18)
[2020-02-12 06:08] LABS: BASOPHILS % (AUTO) 0.4 % (0.0-5.0); EOSINOPHILS % (AUTO) 2.7 % (0.0-8.0); HEMATOCRIT 29.1 % (42-54); LYMPHOCYTES % (AUTO) 20.5 % (21.0-51.0); MONOCYTES % (AUTO) 8.8 % (3.0-13.0); NEUTROPHILS % (AUTO) 67.4 % (40.0-77.0); PLATELET COUNT (AUTO) 95 K/uL (130-400); RED CELL DISTRIBUTION WIDTH 13.4 % (11.0-15.5); WHITE BLOOD COUNT (AUTO) 5.5 K/uL (4.8-10.8)
[2020-02-12 06:32] LABS: ALBUMIN 2.8 g/dL (3.5-5.0); BILIRUBIN,TOTAL 0.4 mg/dL (0.2-1.0); POTASSIUM 5.7 mmol/L (3.5-5.1); TOTAL PROTEIN, SERUM 6.6 g/dL (6.0-8.3)
[2020-02-12 06:40] LABS: CREATININE 9.4 mg/dL (0.5-1.5)
[2020-02-12 07:13] LABS: HEPATITIS A ANTIBODY IGM Negative (Negative); HEPATITIS B CORE IGM Negative (Negative); HEPATITIS Bs ANTIGEN SCREEN P Negative (Negative)
[2020-02-12 07:30] VITALS: BP 165/67
[2020-02-12] MEDS: CEFTRIAXONE SODIUM 1 GM IV SCH ×2 (08:18→20:21)
[2020-02-12 11:00] VITALS: BP 134/59
[2020-02-12 16:00] VITALS: BP 143/62
[2020-02-12 20:30] VITALS: BP 172/72
[2020-02-13 00:06] VITALS: BP 151/69
[2020-02-13] MEDS: HYDROMORPHONE HCL 2 MG/ML VIAL IVP PRN (02:15)
[2020-02-13] MEDS: PANTOPRAZOLE SODIUM 80 MG in SODIUM CHLORIDE 0.9% 100 ML IV SCH (02:17)
[2020-02-13] MEDS: DOXYCYCLINE 100MG+NS 250ML 250 ML IV SCH (03:38)
[2020-02-13 04:00] VITALS: BP 115/57
[2020-02-13 05:27] LABS: BASOPHILS % (AUTO) 0.4 % (0.0-5.0); EOSINOPHILS % (AUTO) 3.7 % (0.0-8.0); HEMATOCRIT 28.1 % (42-54); LYMPHOCYTES % (AUTO) 28.3 % (21.0-51.0); MEAN CORPUSCULAR HEMOGLOBIN 32.1 pg (27.0-33.0); MEAN CORPUSCULAR VOLUME 100.4 fL (79-99); MONOCYTES % (AUTO) 8.4 % (3.0-13.0); NEUTROPHILS % (AUTO) 59.2 % (40.0-77.0); PLATELET COUNT (AUTO) 92 K/uL (130-400); RED CELL DISTRIBUTION WIDTH 13.2 % (11.0-15.5); WHITE BLOOD COUNT (AUTO) 4.6 K/uL (4.8-10.8)
[2020-02-13 05:45] LABS: ALBUMIN 2.6 g/dL (3.5-5.0); BILIRUBIN,TOTAL 0.4 mg/dL (0.2-1.0); CREATININE 6.2 mg/dL (0.5-1.5); POTASSIUM 4.1 mmol/L (3.5-5.1); TOTAL PROTEIN, SERUM 6.1 g/dL (6.0-8.3)
[2020-02-13 08:12] VITALS: BP 182/78
[2020-02-13] MEDS: CEFTRIAXONE SODIUM 1 GM IV SCH (08:20)
[2020-02-13 12:00] VITALS: BP 165/63
--- NOTE | 2020-02-13 15:35 | NUR ---
[facility] consult Patient is followed by Dr. Gallo for left foot wound. Patient to see Dr. Gallo upon discharge. No [facility] recommendations at this time.
--- NOTE | 2020-02-13 17:21 | NUR ---
INSTRUCTIONS DISCHARGE INSTRUCTIONS GIVEN TO PATIENT USING TEACH BACK. IV REMOVED WITH TIP INTACT. DIRECT PRESSURE APPLIED UNTIL BLEEDING CONTROLLED THEN SITE COVERED WITH GAUZE AND SECURED WITH TAPE. NO NEW PRESCRIPTIONS. F/U APPOINTMENT WILL BE MADE BY PATIENT DURING THE NEXT REGULAR BUSINESS DAY. ALL PRINTED INFORMATION AND MD INSTRUCTIONS PLACED IN DISCHARGE PACKET. NO QUESTIONS OR CONCERNS VOICED. PENDING RIDE HOME.
[2020-02-13] MEDS ORDERED: FAMOTIDINE 20MG TAB 20 MG TAB PO SCH (21:00)
== END 2020-02-13 17:50 | disposition home or self-care (01) | DRG 193 ==
LOC: EDH 10:15 → EDHIP 15:25 → 4DH 02-11 01:30
PROVIDERS: ADMIT Internal Medicine; ATTEND Internal Medicine
PROC: 5A1D70Z Performance of Urinary Filtration, Intermittent, Less than 6 Hours Per Day (ICD-10-PCS; principal; 2020-02-10)
PROC: 5A1D70Z Performance of Urinary Filtration, Intermittent, Less than 6 Hours Per Day (ICD-10-PCS; 2020-02-12)
DX: J18.9 Pneumonia, unspecified organism (principal); N18.6 End stage renal disease; J44.0 Chronic obstructive pulmonary disease with (acute) lower respiratory infection; I12.0 Hypertensive chronic kidney disease with stage 5 chronic kidney disease or end stage renal disease; E87.5 Hyperkalemia; R00.1 Bradycardia, unspecified; D64.9 Anemia, unspecified; E11.22 Type 2 diabetes mellitus with diabetic chronic kidney disease; E78.5 Hyperlipidemia, unspecified; E11.51 Type 2 diabetes mellitus with diabetic peripheral angiopathy without gangrene; E11.65 Type 2 diabetes mellitus with hyperglycemia; Z88.1 Allergy status to other antibiotic agents; Z88.8 Allergy status to other drugs, medicaments and biological substances; Z83.3 Family history of diabetes mellitus; Z82.5 Family history of asthma and other chronic lower respiratory diseases; Z82.49 Family history of ischemic heart disease and other diseases of the circulatory system; Z82.3 Family history of stroke; Z82.0 Family history of epilepsy and other diseases of the nervous system; Z99.2 Dependence on renal dialysis; Z91.11 Patient's noncompliance with dietary regimen; Z91.19 Patient's noncompliance with other medical treatment and regimen
CPT/HCPCS: 36415; 71045; 74176; 80048; 80053; 80074; 80076; 82270; 82550; 82948; 83605; 83690; 83880; 84100; 84484; 85025; 86738; 87040; 87449; 90935; 93005; 94640; 94664; 99291; C9113; G0378; J0610; J0696; J1170; J1815; J2405; J2543; J3490; J7040; J7070

== ENCOUNTER 2020-06-09 01:01 | Inpatient (IN) | payer MEDICARE ==
[~2020-06-09] VITALS: Ht 152.4 cm; Wt 68.4 kg
[~2020-06-09 01:01] MED LIST changes: -CLOP75TA32 PO; +FERR210T PO; +ONDA-104 PO; +SIMV-43 PO; -SIMV40TA59 PO
[2020-06-09 01:48] LABS: BASOPHILS % (AUTO) 0.3 % (0.0-5.0); EOSINOPHILS % (AUTO) 2.2 % (0.0-8.0); HEMATOCRIT 32.5 % (42-54); LYMPHOCYTES % (AUTO) 11.2 % (21.0-51.0); MEAN CORPUSCULAR HEMOGLOBIN 31.8 pg (27.0-33.0); MEAN CORPUSCULAR HGB CONC 32.6 g/dL (32.0-36.0); MEAN CORPUSCULAR VOLUME 97.6 fL (79-99); MONOCYTES % (AUTO) 5.5 % (3.0-13.0); NEUTROPHILS % (AUTO) 80.5 % (40.0-77.0); PLATELET COUNT (AUTO) 130 K/uL (130-400); RED BLOOD CELL COUNT(AUTO) 3.33 MIL/uL (4.50-6.20); WHITE BLOOD COUNT (AUTO) 7.4 K/uL (4.8-10.8)
[2020-06-09 02:00] LABS: INR 0.98 (0.85-1.15); PARTIAL THROMBOPLASTIN TIME 29.2 SEC (26.3-35.5); PROTHROMBIN TIME 10.6 SEC (9.6-11.6)
[2020-06-09 02:20] LABS: ALANINE AMINOTRANSFERASE 81 U/L (12-78); ALBUMIN 3.2 g/dL (3.5-5.0); ASPARTATE AMINOTRANSFERASE 63 U/L (10-37); BILIRUBIN,TOTAL 0.8 mg/dL (0.2-1.0); CARBON DIOXIDE 27 mmol/L (21-32); CHLORIDE 99 mmol/L (101-111); CREATINE KINASE, TOTAL 82 U/L (21-232); GLOMERULAR FILTR. RATE CALC 5 mL/min (>60); GLUCOSE,RANDOM 166 mg/dL (70-105); MYOGLOBIN 269 ng/mL (10-92); POTASSIUM 5.8 mmol/L (3.5-5.1); SODIUM SERUM 137 mmol/L (136-145); TOTAL PROTEIN, SERUM 6.8 g/dL (6.0-8.3); TROPONIN I < 0.04 ng/mL (0.00-0.06)
[2020-06-09 02:29] LABS: CREATININE 10.9 mg/dL (0.5-1.5); UREA NITROGEN, BLOOD 81 mg/dL (7-18)
[2020-06-09] MEDS ORDERED: GLUCAGON 1MG KIT 1 MG ML IM PRN (03:15)
[2020-06-09] MEDS ORDERED: ACETAMINOPHEN 325 MG TAB PO PRN ×3 (03:15→12:15)
[2020-06-09] MEDS ORDERED: VANCOMYCIN PROTOCOL PER PHARMACY IV PRN (03:15)
[2020-06-09] MEDS ORDERED: DIPHENHYDRAMINE HCL 25 MG CAPSULE PO PRN (03:15)
[2020-06-09] MEDS ORDERED: NITROGLYCERIN 0.4 MG SL TAB SL PRN ×2 (03:15→12:15)
[2020-06-09] MEDS ORDERED: DEXTROSE 50%-WATER 50 ML DISP.SYRIN IV PRN (03:15)
[2020-06-09] MEDS ORDERED: ONDANSETRON HCL 4 MG/2 ML VIAL IV PRN (03:15)
[2020-06-09] MEDS ORDERED: ZOSYN 3.375GM+NS 50ML 50 ML IV ONE ×2 (03:56→15:56)
[2020-06-09] MEDS ORDERED: VANCOMYCIN 1GM+NS 250ML 250 ML IV ONE ×2 (03:56→08:29)
[2020-06-09] MEDS ORDERED: HYDROCODONE/ACETAMINOPHEN 5/325 MG TAB PO PRN (04:30)
[2020-06-09 04:54] LABS: CRP QUANTITATIVE 50.3 mg/L (0.00-9.0)
[2020-06-09] MEDS ORDERED: ONDANSETRON HCL 4 MG/2 ML VIAL ONE (04:58)
[2020-06-09] MEDS: INSULIN HUMULIN R 100 UNIT/ML 3ML SQ SCH ×3 (07:30→16:30)
[2020-06-09 07:34] LABS: MAGNESIUM 3.1 mg/dL (1.80-2.40); PHOSPHORUS 3.2 mg/dL (2.5-4.9); URIC ACID 5.6 mg/dL (2.6-7.2)
[2020-06-09] MEDS ORDERED: METHYLPREDNISOLONE SOD SUCC 40MG/ML 1ML ONE ×2 (08:27→19:47)
[2020-06-09] MEDS ORDERED: ACETYLCYSTEINE 600 MG CAPSULE ONE ×2 (08:28→19:47)
[2020-06-09] MEDS ORDERED: ASCORBIC ACID 500 MG TAB ONE (08:28)
[2020-06-09] MEDS ORDERED: HEPARIN SODIUM 5000UNIT/ML 1ML VIAL ONE ×2 (08:28→19:47)
[2020-06-09] MEDS ORDERED: ZINC SULFATE 220 CAPSULE ONE (08:28)
[2020-06-09] MEDS: FAMOTIDINE 20MG TAB 20 MG TAB PO SCH ×2 (09:00→20:12)
[2020-06-09] MEDS: HEPARIN SODIUM 5000UNIT/ML 1ML VIAL SQ SCH ×3 (09:00→21:00)
[2020-06-09] MEDS: ASCORBIC ACID 500 MG TAB PO SCH (09:00)
[2020-06-09] MEDS: ACETYLCYSTEINE 600 MG CAPSULE PO SCH ×2 (09:00→20:12)
[2020-06-09] MEDS: METHYLPREDNISOLONE SOD SUCC 40MG/ML 1ML IVP SCH ×3 (09:00→20:12)
[2020-06-09] MEDS: ZINC SULFATE 220 CAPSULE PO SCH (09:00)
[2020-06-09] MEDS ORDERED: VANCOMYCIN 1GM+NS 250ML 250 ML IV SCH (09:00)
[2020-06-09] MEDS ORDERED: SODIUM POLYSTYRENE SULFONATE 15 GM/60 ML ML RC SCH (09:30)
--- NOTE | 2020-06-09 10:00 | NUR ---
Dr. David Fischer Spoke to MD via telephone regarding consult.
[2020-06-09] MEDS ORDERED: SODIUM POLYSTYRENE SULFONATE 15 GM/60 ML ML ONE (10:33)
[2020-06-09 10:48] LABS: APPEARANCE,URINE Turbid (CLEAR); BILIRUBIN,URINE Negative (NEGATIVE); COLOR,URINE Yellow (YELLOW); GLUCOSE, URINE (UA) 250 mg/dL (NEGATIVE); KETONES,URINE Negative (NEGATIVE); LEUKOCYTE ESTERASE ,URINE Large (NEGATIVE); NITRATE,URINE Negative (NEGATIVE); OCCULT BLOOD,URINE Moderate (NEGATIVE); PROTEIN,URINE >=1000 mg/dL (NEGATIVE)
[2020-06-09 11:05] LABS: BACTERIA,URINE Few /HPF (None Seen); SQUAMOUS EPITHELIAL CELL,UR Moderate /HPF (0-2); WBC,URINE >100 /HPF (0-1)
[2020-06-09 12:00] VITALS: BP 154/50
[2020-06-09] MEDS ORDERED: LIDOCAINE HCL-MPF 1% 2ML VIAL IJ PRN (12:15)
[2020-06-09] MEDS ORDERED: SODIUM CHLORIDE 0.9% 1000ML 1,000 ML IV PRN (12:15)
[2020-06-09] MEDS ORDERED: HEPARIN SODIUM 5000UNIT/ML 1ML VIAL IJ PRN ×2 (12:15)
[2020-06-09] MEDS ORDERED: 0.9% SODIUM CHLORIDE 1000 ML IV BAG IV PRN (12:15)
--- NOTE | 2020-06-09 13:17 | NUR ---
Spoke to patients daughter Denisa Turner for patient update. Family member given the opportunity to ask questions, patient's daughter had no questions.
[2020-06-09 16:00] VITALS: BP 175/73
[2020-06-09] MEDS: ZOSYN 3.375GM+NS 50ML 50 ML IV SCH (16:00)
[2020-06-09] MEDS ORDERED: INSULIN HUMULIN R 100 UNIT/ML 3ML ONE ×2 (16:44→20:20)
--- NOTE | 2020-06-09 17:04 | NUR ---
CALL TO DAUGHTER PO FOR DC PLANNING PATIENT LIVES WITH SUSAN VELASCO WHO IS HTE ONLY CHILD-THERE IS ANOTHER DAUGHTER BUT SHE IS ESTRANGED AND WAS ADOPTED INTO ANOTHER FAMILY, SO ROD IS THE DESIGNATED QUALIFIED RELATIVE. STATES HER FATHER NEEDS HELP WITH ALL DECISIONS, ALTHOUGH THERE IS NO PAPER FOR [facility]. GOES TO [facility] TTS- MISSED LAST TX BECAUSE HER HAD FEVER AND WAS NOT PERMITTED TO GO TO CLINICE STATES PATIENT SEMI- INDEPENDENT, HAS A WKR, AND A WHEELCHAIR BUT MOSTLY USES THE WALKER, HAS A PROVIDER AND DAUGHTER IS THE RESPITE PROVIDER FOR 5 HOURS DAILY . DCP [place], [place] TO FOLLOW Addendum: 06/10/20 at 1709 by ONEL MAZA RN CM Amended: Links added.
[2020-06-09] MEDS ORDERED: FAMOTIDINE 20MG TAB 20 MG TAB ONE (19:52)
[2020-06-10] MEDS: ZOSYN 3.375GM+NS 50ML 50 ML IV SCH ×2 (04:00→17:52)
[2020-06-10] MEDS ORDERED: ZOSYN 3.375GM+NS 50ML 50 ML IV ONE ×2 (05:04→17:37)
[2020-06-10 05:58] LABS: BASOPHILS % (AUTO) 0.2 % (0.0-5.0); HEMATOCRIT 27.1 % (42-54); LYMPHOCYTES % (AUTO) 8.3 % (21.0-51.0); MEAN CORPUSCULAR HEMOGLOBIN 32.4 pg (27.0-33.0); MEAN CORPUSCULAR HGB CONC 33.6 g/dL (32.0-36.0); MEAN CORPUSCULAR VOLUME 96.4 fL (79-99); MONOCYTES % (AUTO) 2.6 % (3.0-13.0); NEUTROPHILS % (AUTO) 88.6 % (40.0-77.0); PLATELET COUNT (AUTO) 105 K/uL (130-400); RED BLOOD CELL COUNT(AUTO) 2.81 MIL/uL (4.50-6.20); RED CELL DISTRIBUTION WIDTH 13.4 % (11.0-15.5); WHITE BLOOD COUNT (AUTO) 6.1 K/uL (4.8-10.8)
[2020-06-10] MEDS: INSULIN HUMULIN R 100 UNIT/ML 3ML SQ SCH ×2 (06:31→21:35)
[2020-06-10 06:49] LABS: ALBUMIN 2.8 g/dL (3.5-5.0); BILIRUBIN,TOTAL 0.9 mg/dL (0.2-1.0); CRP QUANTITATIVE 163.2 mg/L (0.00-9.0); POTASSIUM 5.2 mmol/L (3.5-5.1); TOTAL PROTEIN, SERUM 6.4 g/dL (6.0-8.3)
[2020-06-10 09:00] VITALS: BP 163/55
[2020-06-10] MEDS: METHYLPREDNISOLONE SOD SUCC 40MG/ML 1ML IVP SCH ×3 (09:00→21:35)
[2020-06-10] MEDS: HEPARIN SODIUM 5000UNIT/ML 1ML VIAL SQ SCH (09:00)
[2020-06-10] MEDS: ASCORBIC ACID 500 MG TAB PO SCH (10:15)
[2020-06-10] MEDS: ZINC SULFATE 220 CAPSULE PO SCH (10:20)
[2020-06-10] MEDS: ACETYLCYSTEINE 600 MG CAPSULE PO SCH ×2 (10:20→21:35)
[2020-06-10] MEDS: FAMOTIDINE 20MG TAB 20 MG TAB PO SCH ×2 (10:20→21:35)
[2020-06-10 12:15] VITALS: BP 143/58
[2020-06-10] MEDS ORDERED: METHYLPREDNISOLONE SOD SUCC 40MG/ML 1ML ONE ×2 (13:31→20:40)
[2020-06-10] MEDS ORDERED: FAMOTIDINE 20MG TAB 20 MG TAB ONE ×2 (13:31→20:40)
[2020-06-10] MEDS ORDERED: HEPARIN SODIUM 5000UNIT/ML 1ML VIAL ONE ×2 (13:32→20:41)
[2020-06-10] MEDS ORDERED: ACETYLCYSTEINE 600 MG CAPSULE ONE ×2 (13:32→20:41)
--- NOTE | 2020-06-10 15:18 | NUR ---
CHART CHECK COMPLETED. Pt IS A 50 Y.O. MALE ADMITTED SECONDARY TO SUSPECTED COVID, ESRD, HYPERKALEMIA. Pt HAS A PAST MEDICAL HISTORY SIGNIFICANT FOR DMII, ESRD-HD, HYPERTENSION, HYPERLIPIDEMIA, HYPOTHYROIDISM, AND TOE AMPUTATION. Pt CURRENTLY ON REGULAR TEXTURE, THIN LIQUIDS (RENAL DIALYSIS DIET). Pt CURRENTLY ON NON-REBREATHER. PLEASE REQUEST FORMAL SKILLED SPEECH/SWALLOW EVALUATION IF Pt PRESENTS WITH +S/S OF ASPIRATION DURING MEAL TIMES. Addendum: 06/10/20 at 1532 by REGAN DUKES, [facility] Amended: Links added.
[2020-06-10 16:10] VITALS: BP 160/62
[2020-06-10] MEDS ORDERED: ACETAMINOPHEN 325 MG TAB ONE (17:38)
--- NOTE | 2020-06-10 17:49 | NUR ---
C/O HEADACHE, GAVE TYLENOL ORDERED. PT RESTING COMFORTABLY WITH NON REBREATHER MASK ON. WILL QUICKLY DESATURATE TO THE LOW 80S WHEN EATING AND MASK IS OFF. INSTRUCTED TO EAT SLOWLY AND TO PUT ON MASK WHILE EATING SO HE WILL NOT FEEL SO BAD. PT VOICED UNDERSTANDING.
[2020-06-10] MEDS: DOXYCYCLINE HYCLATE 100 MG TABLET PO SCH ×2 (18:00→21:35)
[2020-06-10] MEDS ORDERED: CEFTRIAXONE SODIUM 1 GM ONE (18:01)
[2020-06-10] MEDS ORDERED: DOXYCYCLINE 100MG+NS 250ML 250 ML IV ONE (18:01)
[2020-06-10] MEDS: CEFTRIAXONE SODIUM 1 GM IVP SCH (18:12)
--- NOTE | 2020-06-10 18:12 | NUR ---
ROCEPHIN 1GM IV GIVEN AT 1812 ORDERED. DOXYCYCLINE IV GIVEN A 1800 ORDERED.
[2020-06-10] MEDS ORDERED: DOXYCYCLINE HYCLATE 100 MG TABLET PO ONE (20:40)
[2020-06-10] MEDS ORDERED: DOXYCYCLINE 100MG+NS 250ML 250 ML IV SCH (21:00)
[2020-06-10] MEDS ORDERED: INSULIN HUMULIN R 100 UNIT/ML 3ML ONE (21:44)
[2020-06-11] MEDS ORDERED: ZOSYN 3.375GM+NS 50ML 50 ML IV ONE (03:50)
[2020-06-11] MEDS: ZOSYN 3.375GM+NS 50ML 50 ML IV SCH (04:00)
[2020-06-11] MEDS: INSULIN HUMULIN R 100 UNIT/ML 3ML SQ SCH ×4 (06:47→21:10)
[2020-06-11 07:59] LABS: HEMATOCRIT 27.6 % (42-54); LYMPHOCYTES % (AUTO) 7.7 % (21.0-51.0); MEAN CORPUSCULAR HEMOGLOBIN 31.4 pg (27.0-33.0); MEAN CORPUSCULAR VOLUME 95.2 fL (79-99); MONOCYTES % (AUTO) 4.7 % (3.0-13.0); NEUTROPHILS % (AUTO) 87.1 % (40.0-77.0); PLATELET COUNT (AUTO) 110 K/uL (130-400); RED CELL DISTRIBUTION WIDTH 13.5 % (11.0-15.5); WHITE BLOOD COUNT (AUTO) 5.6 K/uL (4.8-10.8)
[2020-06-11 08:20] LABS: ALBUMIN 2.8 g/dL (3.5-5.0); BILIRUBIN,TOTAL 0.6 mg/dL (0.2-1.0); CREATININE 7.7 mg/dL (0.5-1.5); CRP QUANTITATIVE 74.9 mg/L (0.00-9.0); POTASSIUM 4.3 mmol/L (3.5-5.1); TOTAL PROTEIN, SERUM 6.4 g/dL (6.0-8.3)
[2020-06-11] MEDS ORDERED: DOXYCYCLINE HYCLATE 100 MG TABLET PO ONE (09:00)
[2020-06-11] MEDS: FAMOTIDINE 20MG TAB 20 MG TAB PO SCH ×2 (09:00→21:13)
[2020-06-11] MEDS: MUPIROCIN OINTMENT 22 GM TUBE TP SCH ×2 (09:00→21:00)
[2020-06-11] MEDS: ZINC SULFATE 220 CAPSULE PO SCH (09:00)
[2020-06-11] MEDS: ACETYLCYSTEINE 600 MG CAPSULE PO SCH ×2 (09:00→21:12)
[2020-06-11] MEDS ORDERED: ASCORBIC ACID 500 MG TAB ONE (09:00)
[2020-06-11] MEDS ORDERED: METHYLPREDNISOLONE SOD SUCC 40MG/ML 1ML ONE (09:00)
[2020-06-11] MEDS: DOXYCYCLINE HYCLATE 100 MG TABLET PO SCH ×2 (09:00→21:13)
[2020-06-11] MEDS: ASCORBIC ACID 500 MG TAB PO SCH (09:00)
[2020-06-11] MEDS ORDERED: ACETYLCYSTEINE 600 MG CAPSULE ONE (09:01)
[2020-06-11] MEDS ORDERED: FAMOTIDINE 20MG TAB 20 MG TAB ONE (09:01)
[2020-06-11] MEDS ORDERED: HEPARIN SODIUM 5000UNIT/ML 1ML VIAL ONE (09:01)
[2020-06-11] MEDS ORDERED: ZINC SULFATE 220 CAPSULE ONE (09:02)
[2020-06-11 09:13] LABS: HEPATITIS Bs ANTIGEN SCREEN P Negative (Negative)
[2020-06-11] MEDS ORDERED: CEFTRIAXONE SODIUM 1 GM ONE (10:39)
[2020-06-11] MEDS: CEFTRIAXONE SODIUM 1 GM IVP SCH (11:15)
--- NOTE | 2020-06-11 15:58 | NUR ---
Current d-dimer is 805, plt 110. Pt has heparin sodium 5000 units sq ordered tid. Reported results to Dr. Steven East, rec'd instructions to decrease heparin to bid. Orders entered.
[2020-06-11 16:00] VITALS: BP_SYST 169; BP_SYST 185; BP_DIAS 76; BP_DIAS 90
[2020-06-11] MEDS: METHYLPREDNISOLONE SOD SUCC 40MG/ML 1ML IVP SCH ×2 (16:27→23:31)
[2020-06-11 20:00] VITALS: BP 172/79
[2020-06-11] MEDS: AMLODIPINE BESYLATE 5 MG TAB PO SCH (21:00)
[2020-06-11] MEDS: METOPROLOL TARTRATE 25 MG TAB PO SCH (21:00)
[2020-06-11] MEDS ORDERED: AMLODIPINE BESYLATE 5 MG TAB ONE (21:06)
[2020-06-11] MEDS ORDERED: METOPROLOL TARTRATE 25 MG TAB ONE (21:06)
[2020-06-11] MEDS: HEPARIN SODIUM 5000UNIT/ML 1ML VIAL SQ SCH (21:12)
[2020-06-11 22:00] VITALS: BP 124/43
--- NOTE | 2020-06-11 22:00 | NUR ---
pATIENT WALKED TO THE RESTROOM, EVEN THOUGH I ADVICED HIM NOT TO. HIS LEFT PLANTAR ULCER WAS BLEEDING MILDLY. I TOOK A PICTURE AND CLEANED IT WITH BETADINE, SALINE, AND WRAPPED IT WITH 4X4 AND KERLEX. I TOLD HIM AGAIN NOT TO GET UP TO GO TO THE RESTROOM, THAT WE CAN PLACE THE BEDPAN EACH TIME OR TO GO IN THE ADULT BRIEFS THAT HE HAS. HE VERBALIZES UNDERSTANDING. PICTURES WERE PLACED IN THE BACK OF THE CHART.
[2020-06-12] VITALS: BP 152/62
--- NOTE | 2020-06-12 | NUR ---
SPOKE TO EPI MENSAH ON THE PHONE ABOUT PATIENT'S PERSISTENT HIGH BLOOD PRESSURE HERE AND AT HOME. SHE ORDERED HYDRALAZINE 10 MG IV Q6 HOURS PRN FOR SYSTOLIC ABOVE 160. MEDICATION GIVEN.
[2020-06-12] MEDS ORDERED: HYDRALAZINE HCL 20 MG/ML VIAL ONE (00:03)
[2020-06-12 04:00] VITALS: BP 155/68
[2020-06-12] MEDS: INSULIN HUMULIN R 100 UNIT/ML 3ML SQ SCH ×4 (05:08→20:28)
[2020-06-12 05:32] LABS: HEMATOCRIT 29.5 % (42-54); LYMPHOCYTES % (AUTO) 6.7 % (21.0-51.0); MEAN CORPUSCULAR HEMOGLOBIN 31.9 pg (27.0-33.0); MEAN CORPUSCULAR HGB CONC 33.6 g/dL (32.0-36.0); MEAN CORPUSCULAR VOLUME 95.2 fL (79-99); MONOCYTES % (AUTO) 2.6 % (3.0-13.0); NEUTROPHILS % (AUTO) 89.9 % (40.0-77.0); PLATELET COUNT (AUTO) 113 K/uL (130-400); RED CELL DISTRIBUTION WIDTH 13.3 % (11.0-15.5); WHITE BLOOD COUNT (AUTO) 6.1 K/uL (4.8-10.8)
[2020-06-12] MEDS ORDERED: VANCOMYCIN 750MG + NS 250 ML IV SCH ×2 (06:00)
[2020-06-12 06:01] LABS: BILIRUBIN,TOTAL 0.6 mg/dL (0.2-1.0); POTASSIUM 4.4 mmol/L (3.5-5.1)
[2020-06-12] MEDS: METHYLPREDNISOLONE SOD SUCC 40MG/ML 1ML IVP SCH ×2 (06:16→16:00)
[2020-06-12 06:44] LABS: CREATININE 9.8 mg/dL (0.5-1.5)
[2020-06-12 08:33] VITALS: BP 173/66
[2020-06-12] MEDS: DOXYCYCLINE HYCLATE 100 MG TABLET PO SCH (09:51)
[2020-06-12] MEDS: ZINC SULFATE 220 CAPSULE PO SCH (09:51)
[2020-06-12] MEDS: AMLODIPINE BESYLATE 5 MG TAB PO SCH (09:52)
[2020-06-12] MEDS: ASCORBIC ACID 500 MG TAB PO SCH (09:52)
[2020-06-12] MEDS: ACETYLCYSTEINE 600 MG CAPSULE PO SCH ×2 (09:52→20:05)
[2020-06-12] MEDS: METOPROLOL TARTRATE 25 MG TAB PO SCH ×2 (09:53→20:06)
[2020-06-12] MEDS: FAMOTIDINE 20MG TAB 20 MG TAB PO SCH ×2 (09:53→20:05)
[2020-06-12] MEDS: HEPARIN SODIUM 5000UNIT/ML 1ML VIAL SQ SCH ×2 (09:59→20:07)
[2020-06-12] MEDS: CEFTRIAXONE SODIUM 1 GM IVP SCH (11:35)
[2020-06-12 12:00] VITALS: BP 168/66
[2020-06-12] MEDS ORDERED: MIDODRINE HCL 5 MG TABLET PO PRN (14:15)
[2020-06-12] MEDS: MUPIROCIN OINTMENT 22 GM TUBE TP SCH ×2 (14:20→20:07)
[2020-06-12 16:00] VITALS: BP 158/82
[2020-06-12 19:56] VITALS: BP 174/69
[2020-06-12] MEDS: HYDRALAZINE HCL 20 MG/ML VIAL IV PRN (20:06)
[2020-06-13 00:18] VITALS: BP 137/40
[2020-06-13 04:00] VITALS: BP 149/65
[2020-06-13 05:35] LABS: BASOPHILS % (AUTO) 0.2 % (0.0-5.0); EOSINOPHILS % (AUTO) 0.2 % (0.0-8.0); HEMATOCRIT 27.9 % (42-54); MEAN CORPUSCULAR HEMOGLOBIN 31.6 pg (27.0-33.0); MEAN CORPUSCULAR HGB CONC 33.7 g/dL (32.0-36.0); MEAN CORPUSCULAR VOLUME 93.9 fL (79-99); MONOCYTES % (AUTO) 7.3 % (3.0-13.0); NEUTROPHILS % (AUTO) 67.7 % (40.0-77.0); PLATELET COUNT (AUTO) 115 K/uL (130-400); RED BLOOD CELL COUNT(AUTO) 2.97 MIL/uL (4.50-6.20); RED CELL DISTRIBUTION WIDTH 13.1 % (11.0-15.5); WHITE BLOOD COUNT (AUTO) 6.3 K/uL (4.8-10.8)
[2020-06-13] MEDS: INSULIN HUMULIN R 100 UNIT/ML 3ML SQ SCH ×4 (06:11→21:23)
[2020-06-13 06:22] LABS: ALBUMIN 2.6 g/dL (3.5-5.0); BILIRUBIN,TOTAL 0.5 mg/dL (0.2-1.0); CREATININE 7.2 mg/dL (0.5-1.5); CRP QUANTITATIVE 27.9 mg/L (0.00-9.0); POTASSIUM 3.7 mmol/L (3.5-5.1); TOTAL PROTEIN, SERUM 6.1 g/dL (6.0-8.3)
[2020-06-13 08:00] VITALS: BP 148/46
[2020-06-13] MEDS: ACETYLCYSTEINE 600 MG CAPSULE PO SCH ×2 (08:53→20:29)
[2020-06-13] MEDS: ZINC SULFATE 220 CAPSULE PO SCH (08:54)
[2020-06-13] MEDS: ASCORBIC ACID 500 MG TAB PO SCH (08:54)
[2020-06-13] MEDS: METOPROLOL TARTRATE 25 MG TAB PO SCH ×2 (08:54→20:29)
[2020-06-13] MEDS: FAMOTIDINE 20MG TAB 20 MG TAB PO SCH ×2 (08:54→20:29)
[2020-06-13] MEDS: AMLODIPINE BESYLATE 5 MG TAB PO SCH (08:54)
[2020-06-13] MEDS: HEPARIN SODIUM 5000UNIT/ML 1ML VIAL SQ SCH ×2 (08:59→20:30)
[2020-06-13] MEDS: MUPIROCIN OINTMENT 22 GM TUBE TP SCH ×2 (09:00→20:27)
[2020-06-13 12:00] VITALS: BP 138/53
[2020-06-13 16:00] VITALS: BP 137/53
[2020-06-13 19:53] VITALS: BP 139/59
[2020-06-14] VITALS (7 sets, daily range): BP systolic 124–163; BP diastolic 46–72
[2020-06-14] MEDS: HYDRALAZINE HCL 20 MG/ML VIAL IV PRN (00:18)
[2020-06-14] MEDS ORDERED: DIPHENOXYLATE HCL/ATROPINE 2.5/0.025 MG TAB PO ONE ×2 (01:15→01:18)
--- NOTE | 2020-06-14 04:35 | NUR ---
patient has difficulty breathing. taught him to lie prone and breathe through his nose and his oxygen saturations prone are 97-98%. he verbalizes that prone makes him breathe better
[2020-06-14 05:36] LABS: BASOPHILS % (AUTO) 0.2 % (0.0-5.0); EOSINOPHILS % (AUTO) 1.6 % (0.0-8.0); HEMATOCRIT 27.1 % (42-54); LYMPHOCYTES % (AUTO) 22.1 % (21.0-51.0); MEAN CORPUSCULAR HEMOGLOBIN 31.6 pg (27.0-33.0); MEAN CORPUSCULAR HGB CONC 33.6 g/dL (32.0-36.0); MEAN CORPUSCULAR VOLUME 94.1 fL (79-99); MONOCYTES % (AUTO) 7.4 % (3.0-13.0); NEUTROPHILS % (AUTO) 67.8 % (40.0-77.0); PLATELET COUNT (AUTO) 113 K/uL (130-400); RED BLOOD CELL COUNT(AUTO) 2.88 MIL/uL (4.50-6.20); RED CELL DISTRIBUTION WIDTH 12.9 % (11.0-15.5); WHITE BLOOD COUNT (AUTO) 5.7 K/uL (4.8-10.8)
[2020-06-14] MEDS: INSULIN HUMULIN R 100 UNIT/ML 3ML SQ SCH ×4 (05:42→22:00)
[2020-06-14 06:33] LABS: ALBUMIN 2.6 g/dL (3.5-5.0); BILIRUBIN,TOTAL 0.5 mg/dL (0.2-1.0); CRP QUANTITATIVE 24.9 mg/L (0.00-9.0); POTASSIUM 4.4 mmol/L (3.5-5.1); TOTAL PROTEIN, SERUM 5.6 g/dL (6.0-8.3)
[2020-06-14 07:02] LABS: CREATININE 9.9 mg/dL (0.5-1.5)
[2020-06-14] MEDS: ASCORBIC ACID 500 MG TAB PO SCH (09:14)
[2020-06-14] MEDS: ACETYLCYSTEINE 600 MG CAPSULE PO SCH ×2 (09:14→21:53)
[2020-06-14] MEDS: AMLODIPINE BESYLATE 5 MG TAB PO SCH (09:14)
[2020-06-14] MEDS: METOPROLOL TARTRATE 25 MG TAB PO SCH (09:14)
[2020-06-14] MEDS: ZINC SULFATE 220 CAPSULE PO SCH (09:14)
[2020-06-14] MEDS: FAMOTIDINE 20MG TAB 20 MG TAB PO SCH (09:14)
[2020-06-14] MEDS: MUPIROCIN OINTMENT 22 GM TUBE TP SCH ×2 (09:15→22:20)
[2020-06-14] MEDS: HEPARIN SODIUM 5000UNIT/ML 1ML VIAL SQ SCH ×2 (09:15→21:59)
[2020-06-14] MEDS: CEFTRIAXONE SODIUM 1 GM IVP SCH (11:35)
[2020-06-14] MEDS: DOXYCYCLINE HYCLATE 100 MG TABLET PO SCH (21:53)
[2020-06-15] VITALS: BP 142/60
[2020-06-15] MEDS: METOPROLOL TARTRATE 25 MG TAB PO SCH ×2 (00:05→09:00)
[2020-06-15 04:47] VITALS: BP 138/54
[2020-06-15 04:57] LABS: EOSINOPHILS % (AUTO) 2.6 % (0.0-8.0); HEMATOCRIT 26.6 % (42-54); LYMPHOCYTES % (AUTO) 21.5 % (21.0-51.0); MEAN CORPUSCULAR HEMOGLOBIN 31.7 pg (27.0-33.0); MEAN CORPUSCULAR HGB CONC 33.8 g/dL (32.0-36.0); MEAN CORPUSCULAR VOLUME 93.7 fL (79-99); MONOCYTES % (AUTO) 7.3 % (3.0-13.0); NEUTROPHILS % (AUTO) 67.7 % (40.0-77.0); PLATELET COUNT (AUTO) 102 K/uL (130-400); RED BLOOD CELL COUNT(AUTO) 2.84 MIL/uL (4.50-6.20); RED CELL DISTRIBUTION WIDTH 13.2 % (11.0-15.5); WHITE BLOOD COUNT (AUTO) 5.7 K/uL (4.8-10.8)
[2020-06-15 05:38] LABS: ALBUMIN 2.5 g/dL (3.5-5.0); BILIRUBIN,TOTAL 0.4 mg/dL (0.2-1.0); CRP QUANTITATIVE 28.5 mg/L (0.00-9.0); POTASSIUM 4.7 mmol/L (3.5-5.1); TOTAL PROTEIN, SERUM 5.6 g/dL (6.0-8.3)
[2020-06-15 05:45] LABS: CREATININE 11.2 mg/dL (0.5-1.5)
[2020-06-15] MEDS: INSULIN HUMULIN R 100 UNIT/ML 3ML SQ SCH ×3 (07:30→16:47)
[2020-06-15 08:32] VITALS: BP 139/54
[2020-06-15] MEDS: HEPARIN SODIUM 5000UNIT/ML 1ML VIAL SQ SCH (09:00)
[2020-06-15] MEDS: AMLODIPINE BESYLATE 5 MG TAB PO SCH (09:00)
[2020-06-15] MEDS ORDERED: FAMOTIDINE 20MG TAB 20 MG TAB PO SCH (09:00)
--- NOTE | 2020-06-15 09:00 | NUR ---
PT HAS A HEPARIN 5000 UNITS SQ . AT 0900 . PER DIALYSIS NURSE DIALYSIS TREATMENT WILL BE STARTED SOON, WILL ASSESS TIME OF DIALYSIS
--- NOTE | 2020-06-15 09:10 | NUR ---
ANDRZEJ HARO HERE AND MARCIA OF PT GETTING DIALYSIS AND DID NOT GIVE THE HEPARIN 5000 UNITS SQ DUE TO PENDING DIALYSIS. OKAY TO HOLD DOSE FOLLOW WITH THE DOSES AFTER DIALYSIS TREATMENT . Addendum: 06/15/20 at 2012 by BETHEL HUNTER RN RN ASHLEE Patel
[2020-06-15] MEDS: ASCORBIC ACID 500 MG TAB PO SCH (09:16)
[2020-06-15] MEDS: ACETYLCYSTEINE 600 MG CAPSULE PO SCH (09:16)
[2020-06-15] MEDS: ZINC SULFATE 220 CAPSULE PO SCH (09:16)
[2020-06-15] MEDS: DOXYCYCLINE HYCLATE 100 MG TABLET PO SCH (09:19)
[2020-06-15] MEDS: MUPIROCIN OINTMENT 22 GM TUBE TP SCH (09:34)
--- NOTE | 2020-06-15 10:30 | NUR ---
DIALYSIS STAFF AT [facility] . FOR THE DIALYSIS TREATMENT SEE DIALYSIS FLOW SHEET FOR V/S AND TREATMENT.
[2020-06-15 12:09] VITALS: BP 157/67
--- NOTE | 2020-06-15 13:30 | NUR ---
DIALYSIS COMPLETED WITH A REMOVAL OF 2 LITERS , SEE DIALYSIS FLOW SHEET FOR V/S AND TREATMENT .
[2020-06-15] MEDS: CEFTRIAXONE SODIUM 1 GM IVP SCH (14:48)
--- NOTE | 2020-06-15 15:56 | NUR ---
RD NOTIFICATION Pt admitted with SOB, flulike symptoms, negative for COVID-19. Hx ESRD on hemodialysis. Pt with Dialysis, 75gm CC diet order in place. Notification of Pt requesting snacks. Pt with elevated BUN (102), Cr (11.2), decreased GFR (5). Hemodialysis in place. Recommend Nepro QD Recommend Renal snacks to be offered between meals RD to continue to monitor. Please notify RD as additional nutrition concerns arise. Thank you.
--- NOTE | 2020-06-15 16:35 | NUR ---
CM note: EMS arranged in case needed CM arranged and faxed EMS request to [facility] in case needed for transport, primary nurse to call [facility] once pt ready to DC. Primary nurse aware. CM to cont to follow up.
[2020-06-15 16:41] VITALS: BP 153/50
--- NOTE | 2020-06-15 17:00 | NUR ---
DR. FONG WAS CALLED PER ANDRZEJ Patel REGARDING THE ELIQUIS MEDICATION . DR. FONG AND HOSPITALIST KNOW THE D- DIMER LABS FOR TODAY WAS A INCREASE FROM 975 TO A 1084 . WITH MEDICATION OF ELIQUIS RECOMMANDATIONS DOSES . TO FOLLOW WITH PT.
[2020-06-15] MEDS ORDERED: APIX2.5T PO (17:06)
[2020-06-15] MEDS ORDERED: APIX5TAB PO (17:06)
[2020-06-15] MEDS ORDERED: AMOX-426 PO (17:08)
--- NOTE | 2020-06-15 19:20 | NUR ---
DISCHARGE SUMMARY REVIEW PRIOR OF GOING HOME, HEGuillermo MCFARLANER WAS CALLED AND HIS ELIQUIS MEDICATIONS AND ANTIBOTIC ARE READY TO LICENSED LOAN OFFICER ASSISTANT SL TO HIS LFA WAS DC , SITE PRESSURE DONE AND A SM PRESSURE DRSG APPLICATION ON . PICTURES DONE TO HIS LT TMA, AND RT FOT 5TH TOE, . AND DRSG APPLICATION WET TO DRY TO HIS LT FOOT TMA DONE. LEFT FOOT PLANTER SITE, WILL BE FOLLOWING [facility] FOR DRSG CHANGES . ASK PT TO FOLLOW UP WITH IT SOON POSSIBLE. SITE DRY NO DRAINAGE TO SITE, , NOTED . EDUCATION REGARDING HIS ELIQUIS MEDICATION TO START PER DR. ORDERS . DOSES REVIEW. AGAIN ,UNDERSTOOD . INSTRUCTIONS
== END 2020-06-15 19:26 | disposition home or self-care (01) | DRG 193 ==
LOC: EDH 01:01 → EDHIP 03:03 → 3DH 06-11 15:21
PROVIDERS: ADMIT Internal Medicine; ATTEND Internal Medicine
PROC: 5A1D70Z Performance of Urinary Filtration, Intermittent, Less than 6 Hours Per Day (ICD-10-PCS; principal; 2020-06-09)
PROC: 5A1D70Z Performance of Urinary Filtration, Intermittent, Less than 6 Hours Per Day (ICD-10-PCS; 2020-06-10)
PROC: 5A1D70Z Performance of Urinary Filtration, Intermittent, Less than 6 Hours Per Day (ICD-10-PCS; 2020-06-12)
PROC: 5A1D70Z Performance of Urinary Filtration, Intermittent, Less than 6 Hours Per Day (ICD-10-PCS; 2020-06-15)
DX: J18.9 Pneumonia, unspecified organism (principal); N18.6 End stage renal disease; J96.01 Acute respiratory failure with hypoxia; E43 Unspecified severe protein-calorie malnutrition; I12.0 Hypertensive chronic kidney disease with stage 5 chronic kidney disease or end stage renal disease; J81.1 Chronic pulmonary edema; N39.0 Urinary tract infection, site not specified; E87.5 Hyperkalemia; E11.21 Type 2 diabetes mellitus with diabetic nephropathy; Z20.828 Contact with and (suspected) exposure to other viral communicable diseases; D63.8 Anemia in other chronic diseases classified elsewhere; E03.9 Hypothyroidism, unspecified; E11.22 Type 2 diabetes mellitus with diabetic chronic kidney disease; E78.5 Hyperlipidemia, unspecified; E87.70 Fluid overload, unspecified; Z68.29 Body mass index [BMI] 29.0-29.9, adult; Z78.9 Other specified health status; Z99.2 Dependence on renal dialysis; Z88.1 Allergy status to other antibiotic agents; Z91.15 Patient's noncompliance with renal dialysis; Z91.19 Patient's noncompliance with other medical treatment and regimen; Z82.5 Family history of asthma and other chronic lower respiratory diseases; Z83.3 Family history of diabetes mellitus; Z82.49 Family history of ischemic heart disease and other diseases of the circulatory system
CPT/HCPCS: 36415; 71045; 71250; 73070; 80053; 80202; 81001; 82550; 82728; 82948; 83605; 83615; 83735; 83874; 84100; 84145; 84484; 84550; 85025; 85378; 85610; 85730; 86140; 86704; 86706; 86850; 86900; 86901; 87040; 87046; 87077; 87088; 87186; 87324; 87340; 87486; 87520; 87581; 87633; 87641; 87798; 87804; 90935; 93005; 94760; 99291; G0378; J0360; J0696; J1644; J1815; J2405; J2543; J2920; J3370; J3490; U0003

== ENCOUNTER 2020-11-30 11:30 | Inpatient (IN) | payer MEDICARE ==
[~2020-11-30] VITALS: Ht 162.6 cm; Wt 65.0 kg
[~2020-11-30 11:30] MED LIST changes: +AMOX-426 PO; +APIX2.5T PO; +APIX5TAB PO; -ONDA-104 PO; -PANT40TA25 PO
[2020-11-30 12:16] LABS: BASOPHILS % (AUTO) 0.2 % (0.0-5.0); EOSINOPHILS % (AUTO) 0.4 % (0.0-8.0); HEMATOCRIT 33.1 % (42-54); LYMPHOCYTES % (AUTO) 7.5 % (21.0-51.0); MEAN CORPUSCULAR HEMOGLOBIN 32.1 pg (27.0-33.0); MEAN CORPUSCULAR HGB CONC 33.2 g/dL (32.0-36.0); MEAN CORPUSCULAR VOLUME 96.5 fL (79-99); MONOCYTES % (AUTO) 6.4 % (3.0-13.0); NEUTROPHILS % (AUTO) 85.1 % (40.0-77.0); PLATELET COUNT (AUTO) 96 K/uL (130-400); RED BLOOD CELL COUNT(AUTO) 3.43 MIL/uL (4.50-6.20); RED CELL DISTRIBUTION WIDTH 13.6 % (11.0-15.5)
[2020-11-30 12:36] LABS: B-TYPE NATRIURETIC PEPTIDE 1750 pg/mL (0-100)
[2020-11-30 12:38] LABS: INR 1.11 (0.85-1.15); PROTHROMBIN TIME 11.8 SEC (9.6-11.6)
[2020-11-30 12:39] LABS: ALANINE AMINOTRANSFERASE 34 U/L (12-78); ALBUMIN 3.3 g/dL (3.5-5.0); ASPARTATE AMINOTRANSFERASE 18 U/L (10-37); BILIRUBIN,TOTAL 0.5 mg/dL (0.2-1.0); CARBON DIOXIDE 24 mmol/L (21-32); CHLORIDE 98 mmol/L (101-111); CREATINE KINASE, TOTAL 43 U/L (21-232); GLOMERULAR FILTR. RATE CALC 5 mL/min (>60); GLUCOSE,RANDOM 168 mg/dL (70-105); MYOGLOBIN 239 ng/mL (10-92); SODIUM SERUM 133 mmol/L (136-145); TROPONIN I < 0.04 ng/mL (0.00-0.06)
[2020-11-30 12:40] LABS: PARTIAL THROMBOPLASTIN TIME 32.4 SEC (26.3-35.5)
[2020-11-30 12:44] LABS: POTASSIUM 6.6 mmol/L (3.5-5.1)
[2020-11-30 12:45] LABS: UREA NITROGEN, BLOOD 91 mg/dL (7-18)
[2020-11-30] MEDS ORDERED: LEVOFLOXACIN 500 MG/D5W 100 ML 100 ML ONE (14:06)
[2020-11-30] MEDS ORDERED: CALCIUM GLUC 1GM/10ML VIAL IV ONE (14:06)
[2020-11-30] MEDS ORDERED: INSULIN HUMULIN R 100 UNIT/ML 3ML ONE (14:07)
[2020-11-30] MEDS ORDERED: DEXTROSE 50%-WATER 50 ML DISP.SYRIN IV ONE (14:07)
[2020-11-30] MEDS ORDERED: PHARMACY COMMUNICATION MISC SCH (14:45)
[2020-11-30] MEDS ORDERED: VANCOMYCIN PROTOCOL PER PHARMACY IV SCH (14:45)
[2020-11-30] MEDS ORDERED: ACETAMINOPHEN 325 MG TAB PO PRN (14:45)
[2020-11-30] MEDS ORDERED: KAYEXALATE 15GM/60ML PO SCH (14:45)
[2020-11-30] MEDS ORDERED: HYDRALAZINE 20MG/ML VIAL IV PRN (15:00)
[2020-11-30] MEDS ORDERED: HYDROMORPHONE 0.5 MG SYG (0.5MG/0.5ML) IVP PRN (15:00)
[2020-11-30] MEDS ORDERED: VANCOMYCIN 1G 1.25 GM in 0.9% NACL 250ML 250 ML IV ONE (16:00)
[2020-11-30] MEDS ORDERED: CEFEPIME HCL 1 GM VIAL IVP ONE (16:00)
[2020-11-30] MEDS: INSULIN HUMULIN R 100 UNIT/ML 3ML SQ SCH ×2 (16:30→21:00)
[2020-11-30] MEDS: FAMOTIDINE 20MG TAB PO SCH (21:00)
[2020-11-30] MEDS ORDERED: MORPHINE 2 MG SYG ONE (21:05)
[2020-11-30] MEDS ORDERED: FAMOTIDINE 20MG VIAL IV ONE (21:06)
[2020-12-01] MEDS ORDERED: HYDRALAZINE HCL 10 MG TABLET ONE (00:53)
[2020-12-01] MEDS ORDERED: ACETAMINOPHEN WITH CODEINE 1 TAB TAB ONE (01:57)
[2020-12-01 05:36] LABS: BASOPHILS % (AUTO) 0.1 % (0.0-5.0); EOSINOPHILS % (AUTO) 1.2 % (0.0-8.0); HEMATOCRIT 30.5 % (42-54); LYMPHOCYTES % (AUTO) 11.2 % (21.0-51.0); MEAN CORPUSCULAR HEMOGLOBIN 31.7 pg (27.0-33.0); MEAN CORPUSCULAR HGB CONC 33.4 g/dL (32.0-36.0); MEAN CORPUSCULAR VOLUME 94.7 fL (79-99); MONOCYTES % (AUTO) 7.1 % (3.0-13.0); NEUTROPHILS % (AUTO) 80.2 % (40.0-77.0); PLATELET COUNT (AUTO) 110 K/uL (130-400); RED BLOOD CELL COUNT(AUTO) 3.22 MIL/uL (4.50-6.20); RED CELL DISTRIBUTION WIDTH 13.2 % (11.0-15.5)
[2020-12-01 06:11] LABS: CREATININE 6.9 mg/dL (0.5-1.5); CRP QUANTITATIVE 163.9 mg/L (0.00-9.0); MAGNESIUM 2.3 mg/dL (1.80-2.40); POTASSIUM 4.3 mmol/L (3.5-5.1)
[2020-12-01] MEDS: INSULIN HUMULIN R 100 UNIT/ML 3ML SQ SCH ×4 (07:30→20:57)
[2020-12-01] MEDS ORDERED: ENOXAPARIN SODIUM 30 MG/0.3 ML SQ ONE (07:49)
[2020-12-01] MEDS ORDERED: METOPROLOL TARTRATE 25 MG TAB ONE (07:49)
[2020-12-01] MEDS: ENOXAPARIN SODIUM 30 MG/0.3 ML SQ SCH (09:00)
[2020-12-01] MEDS: METOPROLOL TARTRATE 25 MG TAB PO SCH ×2 (09:00→21:01)
[2020-12-01 13:55] VITALS: BP 147/85
[2020-12-01] MEDS: CEFEPIME HCL 1 GM VIAL IVP SCH (14:42)
[2020-12-01] MEDS ORDERED: VANCOMYCIN PROTOCOL PER PHARMACY IV SCH (14:45)
[2020-12-01] MEDS ORDERED: FERR210T PO (15:58)
[2020-12-01] MEDS ORDERED: CEFEPIME HCL 1 GM VIAL IVP SCH (16:00)
[2020-12-01 16:10] VITALS: BP 148/62
[2020-12-01] MEDS ORDERED: PNEUMOCOCCAL VACCINE POLYVALENT 0.5 ML/VIAL [PPV] IM ONE (17:00)
[2020-12-01] MEDS: VANCOMYCIN 1G/250ML KIT 250 ML IV SCH (17:25)
[2020-12-01 20:38] VITALS: BP 155/69
[2020-12-01] MEDS: FAMOTIDINE 20MG TAB PO SCH (21:01)
[2020-12-01 23:56] VITALS: BP 157/61
[2020-12-02] MEDS: ACETAMINOPHEN WITH CODEINE 1 TAB TAB PO PRN ×3 (02:38→14:57)
[2020-12-02 04:00] VITALS: BP 150/59
[2020-12-02 05:19] LABS: BASOPHILS % (AUTO) 0.3 % (0.0-5.0); EOSINOPHILS % (AUTO) 1.5 % (0.0-8.0); HEMATOCRIT 28.2 % (42-54); LYMPHOCYTES % (AUTO) 13.9 % (21.0-51.0); MEAN CORPUSCULAR HEMOGLOBIN 31.4 pg (27.0-33.0); MEAN CORPUSCULAR HGB CONC 33.3 g/dL (32.0-36.0); MEAN CORPUSCULAR VOLUME 94.3 fL (79-99); MONOCYTES % (AUTO) 8.2 % (3.0-13.0); NEUTROPHILS % (AUTO) 75.8 % (40.0-77.0); PLATELET COUNT (AUTO) 108 K/uL (130-400); RED BLOOD CELL COUNT(AUTO) 2.99 MIL/uL (4.50-6.20); WHITE BLOOD COUNT (AUTO) 6.5 K/uL (4.8-10.8)
[2020-12-02 05:48] LABS: POTASSIUM 4.9 mmol/L (3.5-5.1)
[2020-12-02] MEDS: INSULIN HUMULIN R 100 UNIT/ML 3ML SQ SCH ×4 (05:52→20:06)
[2020-12-02 05:58] LABS: CREATININE 9.9 mg/dL (0.5-1.5)
[2020-12-02 08:23] VITALS: BP 160/66
[2020-12-02 11:34] VITALS: BP 144/65
[2020-12-02] MEDS: ENOXAPARIN SODIUM 30 MG/0.3 ML SQ SCH (13:47)
[2020-12-02] MEDS: CEFEPIME HCL 1 GM VIAL IVP SCH (13:47)
[2020-12-02] MEDS: METOPROLOL TARTRATE 25 MG TAB PO SCH ×2 (13:48→19:19)
[2020-12-02] MEDS ORDERED: VANCOMYCIN 1G/250ML KIT 250 ML IV NR (15:00)
[2020-12-02 16:22] VITALS: BP 118/61
[2020-12-02] MEDS ORDERED: ACETAMINOPHEN 500 MG TABLET PO PRN (19:00)
[2020-12-02] MEDS ORDERED: HEPARIN 5,000 UNIT VIAL SQ SCH (19:00)
[2020-12-02] MEDS: FAMOTIDINE 20MG TAB PO SCH (20:03)
[2020-12-02] MEDS: FERROUS SULFATE 325 MG TABLET.DR PO SCH (20:03)
[2020-12-02 20:47] VITALS: BP 138/60
[2020-12-02] MEDS ORDERED: METOPROLOL TARTRATE 25 MG TAB PO SCH (21:00)
[2020-12-02] MEDS ORDERED: SIMVASTATIN 20 MG TABLET PO SCH (21:00)
[2020-12-02 23:47] VITALS: BP 148/89
[2020-12-03 04:25] VITALS: BP 162/61
[2020-12-03 05:17] LABS: BASOPHILS % (AUTO) 0.2 % (0.0-5.0); EOSINOPHILS % (AUTO) 2.7 % (0.0-8.0); HEMATOCRIT 29.7 % (42-54); LYMPHOCYTES % (AUTO) 19.5 % (21.0-51.0); MEAN CORPUSCULAR HEMOGLOBIN 31.1 pg (27.0-33.0); MEAN CORPUSCULAR VOLUME 94.3 fL (79-99); MONOCYTES % (AUTO) 9.3 % (3.0-13.0); NEUTROPHILS % (AUTO) 68.1 % (40.0-77.0); PLATELET COUNT (AUTO) 126 K/uL (130-400); RED BLOOD CELL COUNT(AUTO) 3.15 MIL/uL (4.50-6.20); WHITE BLOOD COUNT (AUTO) 4.8 K/uL (4.8-10.8)
[2020-12-03] MEDS ORDERED: LEVOTHYROXINE 100 MCG TABLET ONE (05:18)
[2020-12-03 05:36] LABS: CREATININE 7.6 mg/dL (0.5-1.5); POTASSIUM 4.3 mmol/L (3.5-5.1)
[2020-12-03] MEDS ORDERED: FERR210T PO (05:36)
[2020-12-03] MEDS: INSULIN HUMULIN R 100 UNIT/ML 3ML SQ SCH ×3 (06:00→16:29)
[2020-12-03] MEDS ORDERED: LEVOTHYROXINE 100 MCG TABLET PO SCH (07:30)
[2020-12-03 08:12] VITALS: BP 160/62
[2020-12-03] MEDS ORDERED: HEPARIN 5,000 UNIT VIAL SQ SCH (09:00)
[2020-12-03] MEDS ORDERED: AMLODIPINE 5 MG TAB PO SCH (09:00)
[2020-12-03] MEDS ORDERED: ALLOPURINOL 100 MG TABLET PO SCH (09:00)
[2020-12-03] MEDS: CALCIUM AC 667MG CAP PO SCH ×3 (10:08→16:26)
[2020-12-03] MEDS: METOPROLOL TARTRATE 25 MG TAB PO SCH (10:09)
[2020-12-03] MEDS: FERROUS SULFATE 325 MG TABLET.DR PO SCH (10:09)
[2020-12-03 11:36] VITALS: BP 139/58
[2020-12-03] MEDS: CEFEPIME HCL 1 GM VIAL IVP SCH (13:54)
[2020-12-03] MEDS ORDERED: CEPH250C2 PO (14:37)
[2020-12-03] MEDS: VANCOMYCIN 1G/250ML KIT 250 ML IV SCH (15:00)
[2020-12-03] MEDS ORDERED: DOXY100T21 PO (15:57)
[2020-12-03 16:02] VITALS: BP 117/57
[2020-12-07 05:11] LABS: HEPATITIS A ANTIBODY IGM Negative (Negative); HEPATITIS B CORE IGM Negative (Negative); HEPATITIS Bs ANTIGEN SCREEN P Negative (Negative)
== END 2020-12-03 18:56 | disposition home health service (06) | DRG 640 ==
LOC: EDH 11:30 → EDHIP 14:38 → OBSVTOIN 14:38 → 3AH 12-01 14:07
PROVIDERS: ADMIT Internal Medicine; ATTEND Internal Medicine
PROC: 5A1D70Z Performance of Urinary Filtration, Intermittent, Less than 6 Hours Per Day (ICD-10-PCS; principal; 2020-11-30)
PROC: 5A1D70Z Performance of Urinary Filtration, Intermittent, Less than 6 Hours Per Day (ICD-10-PCS; 2020-12-02)
DX: E87.5 Hyperkalemia (principal); N18.6 End stage renal disease; J18.9 Pneumonia, unspecified organism; J96.91 Respiratory failure, unspecified with hypoxia; I12.0 Hypertensive chronic kidney disease with stage 5 chronic kidney disease or end stage renal disease; L03.90 Cellulitis, unspecified; L97.429 Non-pressure chronic ulcer of left heel and midfoot with unspecified severity; E11.22 Type 2 diabetes mellitus with diabetic chronic kidney disease; E11.51 Type 2 diabetes mellitus with diabetic peripheral angiopathy without gangrene; E11.621 Type 2 diabetes mellitus with foot ulcer; E03.9 Hypothyroidism, unspecified; E11.69 Type 2 diabetes mellitus with other specified complication; E78.5 Hyperlipidemia, unspecified; K74.60 Unspecified cirrhosis of liver; L97.529 Non-pressure chronic ulcer of other part of left foot with unspecified severity; Z20.822 Contact with and (suspected) exposure to COVID-19; Z82.49 Family history of ischemic heart disease and other diseases of the circulatory system; Z82.5 Family history of asthma and other chronic lower respiratory diseases; Z83.3 Family history of diabetes mellitus; Z89.432 Acquired absence of left foot; Z91.19 Patient's noncompliance with other medical treatment and regimen; Z99.2 Dependence on renal dialysis; Z88.6 Allergy status to analgesic agent; Z88.1 Allergy status to other antibiotic agents; Z88.8 Allergy status to other drugs, medicaments and biological substances
CPT/HCPCS: 36415; 71045; 73630; 73700; 73718; 80048; 80053; 80074; 82550; 82728; 82948; 83605; 83615; 83735; 83874; 83880; 84145; 84484; 85025; 85378; 85610; 85730; 86140; 86900; 86901; 87040; 87070; 87076; 87077; 87186; 87426; 87804; 90732; 90935; 93005; G0378; J0610; J0692; J1170; J1644; J1650; J1815; J1956; J3370; J3490; J7050; J7070; U0003

== ENCOUNTER 2020-12-20 17:03 | Inpatient (IN) | payer MEDICARE ==
[~2020-12-20 17:03] MED LIST changes: -AMOX-426 PO; -APIX5TAB PO; +CEPH250C2 PO; +DOXY100T21 PO
[2020-12-20 17:30] LABS: BASOPHILS % (AUTO) 0.6 % (0.0-5.0); EOSINOPHILS % (AUTO) 2.1 % (0.0-8.0); LYMPHOCYTES % (AUTO) 22.7 % (21.0-51.0); MEAN CORPUSCULAR HEMOGLOBIN 31.5 pg (27.0-33.0); MEAN CORPUSCULAR HGB CONC 31.9 g/dL (32.0-36.0); MEAN CORPUSCULAR VOLUME 98.7 fL (79-99); MONOCYTES % (AUTO) 5.7 % (3.0-13.0); NEUTROPHILS % (AUTO) 68.6 % (40.0-77.0); PLATELET COUNT (AUTO) 118 K/uL (130-400); RED BLOOD CELL COUNT(AUTO) 3.14 MIL/uL (4.50-6.20); RED CELL DISTRIBUTION WIDTH 14.5 % (11.0-15.5); WHITE BLOOD COUNT (AUTO) 6.7 K/uL (4.8-10.8)
[2020-12-20 17:48] LABS: ALBUMIN 3.4 g/dL (3.5-5.0); BILIRUBIN,TOTAL 0.4 mg/dL (0.2-1.0); POTASSIUM 5.9 mmol/L (3.5-5.1); TOTAL PROTEIN, SERUM 7.3 g/dL (6.0-8.3)
[2020-12-20 17:50] LABS: CREATININE 8.6 mg/dL (0.5-1.5)
[2020-12-21] MEDS ORDERED: MORPHINE 2 MG SYG ONE (00:50)
[2020-12-21] MEDS ORDERED: KAYEXALATE 15GM/60ML PO SCH (02:45)
[2020-12-21] MEDS ORDERED: CACL 1GM SYG IVP SCH (02:45)
[2020-12-21] MEDS: DEXTROSE 50%-WATER 25 GM/50 ML VIAL IV SCH (02:45)
[2020-12-21] MEDS: INSULIN HUMULIN R 100 UNIT/ML 3ML SQ SCH (02:45)
[2020-12-21] MEDS ORDERED: DEXTROSE 50%-WATER 50 ML DISP.SYRIN IV ONE (02:50)
[2020-12-21] MEDS ORDERED: INSULIN HUMULIN R 100 UNIT/ML 3ML ONE (02:51)
[2020-12-21] MEDS ORDERED: ONDANSETRON 4MG INJ IV PRN (03:00)
[2020-12-21] MEDS ORDERED: GUAIFENESIN-DM 200/20 MG 10 ML PO PRN (03:00)
[2020-12-21] MEDS ORDERED: LACTULOSE 20 GM/30 ML UDCUP PO PRN (03:00)
[2020-12-21] MEDS ORDERED: ACETAMINOPHEN 325 MG TAB PO PRN (03:00)
[2020-12-21] MEDS ORDERED: DiphenhydrAMINE HCL 50 MG/ML VIAL IV PRN (03:00)
[2020-12-21] MEDS ORDERED: NITROGLYCERIN 0.4 MG SL TAB SL PRN (03:00)
[2020-12-21] MEDS ORDERED: DIPHENHYDRAMINE HCL 25 MG CAPSULE PO PRN (03:00)
[2020-12-21] MEDS ORDERED: CALC667C10 PO (04:37)
[2020-12-21] MEDS ORDERED: METO25TA6 PO (04:37)
[2020-12-21] MEDS ORDERED: AMLO-258 PO (04:37)
[2020-12-21] MEDS ORDERED: FERR210T PO (04:37)
[2020-12-21] MEDS ORDERED: CALCIUM GLUC 1GM/10ML VIAL IV ONE (05:44)
[2020-12-21] MEDS ORDERED: KAYEXALATE 15GM/60ML ONE (05:44)
[2020-12-21] MEDS ORDERED: 0.9%NACL 100ML 100 ML IV ONE (05:47)
[2020-12-21] MEDS ORDERED: CALCIUM AC 667MG CAP PO SCH (08:00)
[2020-12-21 08:36] LABS: POTASSIUM 5.9 mmol/L (3.5-5.1)
[2020-12-21 08:46] LABS: CREATININE 9.9 mg/dL (0.5-1.5)
[2020-12-21] MEDS: HEPARIN 5,000 UNIT VIAL SQ SCH ×2 (09:00→21:00)
[2020-12-21] MEDS: AMLODIPINE 5 MG TAB PO SCH (09:00)
[2020-12-21] MEDS ORDERED: METOPROLOL TARTRATE 25 MG TAB PO SCH (12:00)
[2020-12-21] MEDS ORDERED: LORAZEPAM 2 MG/ML 1 ML VIAL IVP ONE (12:00)
[2020-12-21] MEDS ORDERED: ACETAMINOPHEN WITH CODEINE 1 TAB TAB ONE (15:27)
[2020-12-21] MEDS ORDERED: ACETAMINOPHEN WITH CODEINE 1 TAB TAB PO SCH (15:30)
[2020-12-21] MEDS ORDERED: HEPARIN 5,000 UNIT VIAL ONE (22:01)
[2020-12-21] MEDS ORDERED: ACETAMINOPHEN 325 MG TAB ONE (22:33)
[2020-12-22] MEDS: INSULIN HUMULIN R 100 UNIT/ML 3ML SQ SCH ×2 (02:45→20:06)
[2020-12-22] MEDS: DEXTROSE 50%-WATER 25 GM/50 ML VIAL IV SCH (02:45)
[2020-12-22] MEDS ORDERED: ACETAMINOPHEN 325 MG TAB ONE ×2 (04:08→04:12)
[2020-12-22 04:14] LABS: BASOPHILS % (AUTO) 0.3 % (0.0-5.0); EOSINOPHILS % (AUTO) 1.2 % (0.0-8.0); HEMATOCRIT 27.4 % (42-54); LYMPHOCYTES % (AUTO) 13.9 % (21.0-51.0); MEAN CORPUSCULAR HEMOGLOBIN 31.2 pg (27.0-33.0); MEAN CORPUSCULAR HGB CONC 31.8 g/dL (32.0-36.0); MEAN CORPUSCULAR VOLUME 98.2 fL (79-99); MONOCYTES % (AUTO) 6.4 % (3.0-13.0); NEUTROPHILS % (AUTO) 77.9 % (40.0-77.0); PLATELET COUNT (AUTO) 111 K/uL (130-400); RED BLOOD CELL COUNT(AUTO) 2.79 MIL/uL (4.50-6.20); RED CELL DISTRIBUTION WIDTH 14.3 % (11.0-15.5); WHITE BLOOD COUNT (AUTO) 6.6 K/uL (4.8-10.8)
[2020-12-22] MEDS: LEVOTHYROXINE 100 MCG TABLET PO SCH (07:30)
[2020-12-22 08:01] LABS: ALBUMIN 2.6 g/dL (3.5-5.0); BILIRUBIN,TOTAL 0.9 mg/dL (0.2-1.0); CREATININE 7.4 mg/dL (0.5-1.5); TOTAL PROTEIN, SERUM 6.1 g/dL (6.0-8.3)
[2020-12-22] MEDS ORDERED: HEPARIN 5,000 UNIT VIAL ONE (08:19)
[2020-12-22] MEDS: AMLODIPINE 5 MG TAB PO SCH (09:00)
[2020-12-22] MEDS: HEPARIN 5,000 UNIT VIAL SQ SCH ×2 (09:00→21:00)
[2020-12-22 09:13] LABS: HEPATITIS A ANTIBODY IGM Negative (Negative); HEPATITIS B CORE IGM Negative (Negative); HEPATITIS Bs ANTIGEN SCREEN P Negative (Negative)
[2020-12-22] MEDS ORDERED: ACETAMINOPHEN WITH CODEINE 1 TAB TAB PO SCH (11:45)
[2020-12-22] MEDS ORDERED: ACETAMINOPHEN WITH CODEINE 1 TAB TAB ONE (13:17)
[2020-12-22 20:19] VITALS: BP 183/52
[2020-12-22] MEDS: SIMVASTATIN 20 MG TABLET PO SCH ×2 (21:00→21:27)
[2020-12-22] MEDS: METOPROLOL TARTRATE 25 MG TAB PO SCH (21:27)
[2020-12-22 21:57] VITALS: BP 141/47
[2020-12-23 00:17] VITALS: BP 157/52
[2020-12-23] MEDS: DEXTROSE 50%-WATER 25 GM/50 ML VIAL IV SCH (02:45)
[2020-12-23 04:12] VITALS: BP 145/48
[2020-12-23 04:40] LABS: BASOPHILS % (AUTO) 0.4 % (0.0-5.0); EOSINOPHILS % (AUTO) 1.3 % (0.0-8.0); HEMATOCRIT 25.3 % (42-54); LYMPHOCYTES % (AUTO) 20.9 % (21.0-51.0); MEAN CORPUSCULAR HEMOGLOBIN 30.5 pg (27.0-33.0); MEAN CORPUSCULAR VOLUME 95.1 fL (79-99); MONOCYTES % (AUTO) 7.5 % (3.0-13.0); NEUTROPHILS % (AUTO) 69.7 % (40.0-77.0); PLATELET COUNT (AUTO) 92 K/uL (130-400); RED BLOOD CELL COUNT(AUTO) 2.66 MIL/uL (4.50-6.20); RED CELL DISTRIBUTION WIDTH 13.9 % (11.0-15.5); WHITE BLOOD COUNT (AUTO) 5.3 K/uL (4.8-10.8)
[2020-12-23 05:20] LABS: ALBUMIN 2.6 g/dL (3.5-5.0); POTASSIUM 5.1 mmol/L (3.5-5.1); TOTAL PROTEIN, SERUM 6.4 g/dL (6.0-8.3)
[2020-12-23 05:24] LABS: CREATININE 9.6 mg/dL (0.5-1.5)
[2020-12-23 05:32] LABS: CRP QUANTITATIVE 179.6 mg/L (0.00-9.0)
[2020-12-23] MEDS: LEVOTHYROXINE 100 MCG TABLET PO SCH (05:51)
[2020-12-23 08:30] VITALS: BP 161/59
[2020-12-23] MEDS: AMLODIPINE 5 MG TAB PO SCH (10:02)
[2020-12-23] MEDS: HEPARIN 5,000 UNIT VIAL SQ SCH ×2 (10:02→21:52)
[2020-12-23] MEDS: METOPROLOL TARTRATE 25 MG TAB PO SCH ×2 (10:06→21:29)
[2020-12-23 12:40] VITALS: BP 158/59
[2020-12-23 16:40] VITALS: BP 113/48
[2020-12-23 20:00] VITALS: BP 142/52
[2020-12-23] MEDS: SIMVASTATIN 20 MG TABLET PO SCH (21:29)
[2020-12-23] MEDS: ACETAMINOPHEN 325 MG TAB PO PRN (21:32)
[2020-12-24 00:07] VITALS: BP 165/52
[2020-12-24] MEDS: INSULIN HUMULIN R 100 UNIT/ML 3ML SQ SCH (02:45)
[2020-12-24] MEDS: DEXTROSE 50%-WATER 25 GM/50 ML VIAL IV SCH (02:45)
[2020-12-24 03:59] VITALS: BP 169/65
[2020-12-24 05:08] LABS: BASOPHILS % (AUTO) 0.5 % (0.0-5.0); HEMATOCRIT 26.3 % (42-54); LYMPHOCYTES % (AUTO) 21.4 % (21.0-51.0); MEAN CORPUSCULAR HEMOGLOBIN 31.3 pg (27.0-33.0); MEAN CORPUSCULAR HGB CONC 33.1 g/dL (32.0-36.0); MEAN CORPUSCULAR VOLUME 94.6 fL (79-99); MONOCYTES % (AUTO) 7.7 % (3.0-13.0); NEUTROPHILS % (AUTO) 68.2 % (40.0-77.0); PLATELET COUNT (AUTO) 111 K/uL (130-400); RED BLOOD CELL COUNT(AUTO) 2.78 MIL/uL (4.50-6.20); RED CELL DISTRIBUTION WIDTH 13.8 % (11.0-15.5)
[2020-12-24 05:30] LABS: ALANINE AMINOTRANSFERASE 32 U/L (12-78); ALBUMIN 2.9 g/dL (3.5-5.0); ASPARTATE AMINOTRANSFERASE 28 U/L (10-37); CARBON DIOXIDE 29 mmol/L (21-32); CHLORIDE 98 mmol/L (101-111); CREATININE 7.2 mg/dL (0.5-1.5); GLOMERULAR FILTR. RATE CALC 9 mL/min (>60); GLUCOSE,RANDOM 102 mg/dL (70-105); POTASSIUM 3.9 mmol/L (3.5-5.1); SODIUM SERUM 139 mmol/L (136-145); TOTAL PROTEIN, SERUM 7.2 g/dL (6.0-8.3); UREA NITROGEN, BLOOD 43 mg/dL (7-18)
[2020-12-24 06:16] LABS: CRP QUANTITATIVE < 0.02 mg/L (0.00-9.0)
[2020-12-24] MEDS ORDERED: MEROPENEM 500 MG VIAL IVP SCH (09:15)
[2020-12-24] MEDS: LEVOTHYROXINE 100 MCG TABLET PO SCH (09:20)
[2020-12-24] MEDS: AMLODIPINE 5 MG TAB PO SCH (09:20)
[2020-12-24] MEDS: METOPROLOL TARTRATE 25 MG TAB PO SCH ×2 (09:21→20:56)
[2020-12-24] MEDS: HEPARIN 5,000 UNIT VIAL SQ SCH ×2 (09:37→20:56)
[2020-12-24 12:23] VITALS: BP 120/37
[2020-12-24] MEDS: MEROPENEM 500 MG VIAL IVP SCH (13:00)
[2020-12-24 16:50] VITALS: BP 105/51
[2020-12-24 20:38] VITALS: BP 128/81
[2020-12-24] MEDS: SIMVASTATIN 20 MG TABLET PO SCH (20:56)
[2020-12-25 01:08] VITALS: BP 150/64
[2020-12-25] MEDS: MEROPENEM 500 MG VIAL IVP SCH ×2 (01:23→12:47)
[2020-12-25] MEDS: INSULIN HUMULIN R 100 UNIT/ML 3ML SQ SCH (01:24)
[2020-12-25] MEDS: DEXTROSE 50%-WATER 25 GM/50 ML VIAL IV SCH (01:24)
[2020-12-25 03:53] VITALS: BP 135/51
[2020-12-25] MEDS: LEVOTHYROXINE 100 MCG TABLET PO SCH (06:33)
[2020-12-25 08:00] VITALS: BP 116/56
[2020-12-25] MEDS: AMLODIPINE 5 MG TAB PO SCH (08:55)
[2020-12-25] MEDS: METOPROLOL TARTRATE 25 MG TAB PO SCH ×2 (08:55→21:08)
[2020-12-25] MEDS: HEPARIN 5,000 UNIT VIAL SQ SCH ×2 (09:01→21:08)
[2020-12-25 12:54] VITALS: BP 144/46
[2020-12-25 16:58] VITALS: BP 160/63
[2020-12-25 20:00] VITALS: BP 150/49
[2020-12-25] MEDS: ACETAMINOPHEN 325 MG TAB PO PRN (21:09)
[2020-12-25] MEDS: SIMVASTATIN 20 MG TABLET PO SCH (21:09)
[2020-12-26] VITALS: BP 138/43
[2020-12-26] MEDS: INSULIN HUMULIN R 100 UNIT/ML 3ML SQ SCH (00:19)
[2020-12-26] MEDS: DEXTROSE 50%-WATER 25 GM/50 ML VIAL IV SCH (00:19)
[2020-12-26] MEDS: MEROPENEM 500 MG VIAL IVP SCH ×2 (00:20→12:29)
[2020-12-26 04:00] VITALS: BP 134/64
[2020-12-26] MEDS: LEVOTHYROXINE 100 MCG TABLET PO SCH (06:13)
[2020-12-26 06:32] LABS: BASOPHILS % (AUTO) 0.7 % (0.0-5.0); EOSINOPHILS % (AUTO) 3.7 % (0.0-8.0); HEMATOCRIT 29.6 % (42-54); LYMPHOCYTES % (AUTO) 21.9 % (21.0-51.0); MEAN CORPUSCULAR HEMOGLOBIN 30.6 pg (27.0-33.0); MEAN CORPUSCULAR HGB CONC 32.1 g/dL (32.0-36.0); MEAN CORPUSCULAR VOLUME 95.5 fL (79-99); MONOCYTES % (AUTO) 7.8 % (3.0-13.0); NEUTROPHILS % (AUTO) 65.7 % (40.0-77.0); PLATELET COUNT (AUTO) 167 K/uL (130-400); RED CELL DISTRIBUTION WIDTH 13.7 % (11.0-15.5); WHITE BLOOD COUNT (AUTO) 4.4 K/uL (4.8-10.8)
[2020-12-26 06:58] LABS: CREATININE 6.6 mg/dL (0.5-1.5); POTASSIUM 4.3 mmol/L (3.5-5.1)
[2020-12-26 07:08] LABS: INR 1.06 (0.85-1.15); PROTHROMBIN TIME 11.5 SEC (9.6-11.6)
[2020-12-26 08:35] VITALS: BP 141/40
[2020-12-26] MEDS: AMLODIPINE 5 MG TAB PO SCH (09:09)
[2020-12-26] MEDS: METOPROLOL TARTRATE 25 MG TAB PO SCH ×2 (09:09→20:17)
[2020-12-26] MEDS: HEPARIN 5,000 UNIT VIAL SQ SCH ×2 (09:12→21:22)
[2020-12-26] MEDS: MAG/ALUM/SIMETH 30 ML UDCUP PO PRN (09:15)
[2020-12-26 12:00] VITALS: BP 122/42
[2020-12-26 17:56] VITALS: BP 129/34
[2020-12-26 20:10] VITALS: BP 129/47
[2020-12-26] MEDS: SIMVASTATIN 20 MG TABLET PO SCH (20:17)
[2020-12-27 00:29] VITALS: BP 141/61
[2020-12-27] MEDS: MEROPENEM 500 MG VIAL IVP SCH ×2 (00:49→12:35)
[2020-12-27] MEDS: DEXTROSE 50%-WATER 25 GM/50 ML VIAL IV SCH (00:50)
[2020-12-27] MEDS: INSULIN HUMULIN R 100 UNIT/ML 3ML SQ SCH (00:50)
[2020-12-27 04:34] VITALS: BP 145/59
[2020-12-27 04:48] LABS: BASOPHILS % (AUTO) 0.5 % (0.0-5.0); EOSINOPHILS % (AUTO) 3.3 % (0.0-8.0); LYMPHOCYTES % (AUTO) 24.4 % (21.0-51.0); MEAN CORPUSCULAR HEMOGLOBIN 30.4 pg (27.0-33.0); MEAN CORPUSCULAR VOLUME 95.1 fL (79-99); MONOCYTES % (AUTO) 8.1 % (3.0-13.0); NEUTROPHILS % (AUTO) 63.4 % (40.0-77.0); PLATELET COUNT (AUTO) 142 K/uL (130-400); RED BLOOD CELL COUNT(AUTO) 2.63 MIL/uL (4.50-6.20); RED CELL DISTRIBUTION WIDTH 13.6 % (11.0-15.5); WHITE BLOOD COUNT (AUTO) 3.7 K/uL (4.8-10.8)
[2020-12-27 04:59] LABS: POTASSIUM 4.8 mmol/L (3.5-5.1)
[2020-12-27 05:04] LABS: CREATININE 8.7 mg/dL (0.5-1.5)
[2020-12-27] MEDS: LEVOTHYROXINE 100 MCG TABLET PO SCH (06:35)
[2020-12-27 08:05] VITALS: BP 135/41
[2020-12-27] MEDS: METOPROLOL TARTRATE 25 MG TAB PO SCH ×2 (08:56→20:44)
[2020-12-27] MEDS: AMLODIPINE 5 MG TAB PO SCH (08:56)
[2020-12-27] MEDS: HEPARIN 5,000 UNIT VIAL SQ SCH ×2 (08:57→20:57)
[2020-12-27 11:45] VITALS: BP 130/47
[2020-12-27 15:55] VITALS: BP 115/33
[2020-12-27 20:09] VITALS: BP 133/29
[2020-12-27] MEDS: SIMVASTATIN 20 MG TABLET PO SCH (20:59)
[2020-12-28 00:20] VITALS: BP 129/32
[2020-12-28] MEDS: MEROPENEM 500 MG VIAL IVP SCH ×2 (01:16→14:20)
[2020-12-28] MEDS: DEXTROSE 50%-WATER 25 GM/50 ML VIAL IV SCH (01:16)
[2020-12-28] MEDS: INSULIN HUMULIN R 100 UNIT/ML 3ML SQ SCH (01:17)
[2020-12-28 04:28] VITALS: BP 147/39
[2020-12-28] MEDS: LEVOTHYROXINE 100 MCG TABLET PO SCH (06:12)
[2020-12-28 07:35] VITALS: BP 131/30
[2020-12-28] MEDS: AMLODIPINE 5 MG TAB PO SCH (09:00)
[2020-12-28] MEDS: METOPROLOL TARTRATE 25 MG TAB PO SCH (09:00)
[2020-12-28] MEDS: HEPARIN 5,000 UNIT VIAL SQ SCH (09:22)
[2020-12-28 11:51] VITALS: BP 93/40
[2020-12-28] MEDS: MAG/ALUM/SIMETH 30 ML UDCUP PO PRN (14:20)
== END 2020-12-28 17:35 | disposition home health service (06) | DRG 640 ==
LOC: EDH 17:03 → EDHIP 12-21 02:47 → 3BH 12-22 14:44 → 4BH 12-22 21:34
PROVIDERS: ADMIT Family Medicine; ATTEND Family Medicine
PROC: 5A1D70Z Performance of Urinary Filtration, Intermittent, Less than 6 Hours Per Day (ICD-10-PCS; 2020-12-21)
PROC: 5A1D70Z Performance of Urinary Filtration, Intermittent, Less than 6 Hours Per Day (ICD-10-PCS; 2020-12-23)
PROC: 5A1D70Z Performance of Urinary Filtration, Intermittent, Less than 6 Hours Per Day (ICD-10-PCS; 2020-12-25)
PROC: 02H633Z Insertion of Infusion Device into Right Atrium, Percutaneous Approach (ICD-10-PCS; principal; 2020-12-27)
PROC: B548ZZA Ultrasonography of Superior Vena Cava, Guidance (ICD-10-PCS; 2020-12-27)
PROC: 5A1D70Z Performance of Urinary Filtration, Intermittent, Less than 6 Hours Per Day (ICD-10-PCS; 2020-12-28)
DX: E87.70 Fluid overload, unspecified (principal); J96.01 Acute respiratory failure with hypoxia; N18.6 End stage renal disease; Z16.24 Resistance to multiple antibiotics; I13.11 Hypertensive heart and chronic kidney disease without heart failure, with stage 5 chronic kidney disease, or end stage renal disease; J81.1 Chronic pulmonary edema; M86.8X7 Other osteomyelitis, ankle and foot; E87.5 Hyperkalemia; E11.621 Type 2 diabetes mellitus with foot ulcer; E11.622 Type 2 diabetes mellitus with other skin ulcer; E11.69 Type 2 diabetes mellitus with other specified complication; L97.529 Non-pressure chronic ulcer of other part of left foot with unspecified severity; E11.51 Type 2 diabetes mellitus with diabetic peripheral angiopathy without gangrene; B96.20 Unspecified Escherichia coli [E. coli] as the cause of diseases classified elsewhere; Z20.822 Contact with and (suspected) exposure to COVID-19; K74.60 Unspecified cirrhosis of liver; E03.9 Hypothyroidism, unspecified; E11.22 Type 2 diabetes mellitus with diabetic chronic kidney disease; E78.00 Pure hypercholesterolemia, unspecified; E78.5 Hyperlipidemia, unspecified; F32.9 Major depressive disorder, single episode, unspecified; I25.10 Atherosclerotic heart disease of native coronary artery without angina pectoris; B95.2 Enterococcus as the cause of diseases classified elsewhere; B96.89 Other specified bacterial agents as the cause of diseases classified elsewhere; R79.89 Other specified abnormal findings of blood chemistry; L97.519 Non-pressure chronic ulcer of other part of right foot with unspecified severity; Z91.19 Patient's noncompliance with other medical treatment and regimen; Z99.2 Dependence on renal dialysis; Z83.3 Family history of diabetes mellitus; Z82.5 Family history of asthma and other chronic lower respiratory diseases; Z89.432 Acquired absence of left foot; Z89.431 Acquired absence of right foot; Z82.49 Family history of ischemic heart disease and other diseases of the circulatory system; Z91.15 Patient's noncompliance with renal dialysis; Z88.1 Allergy status to other antibiotic agents
CPT/HCPCS: 36415; 71045; 71250; 80048; 80053; 80074; 82948; 83605; 83880; 84145; 84484; 85025; 85610; 86140; 87040; 87070; 87077; 87186; 87426; 87507; 87804; 90935; 93005; 94760; C1894; G0378; J0610; J1644; J1815; J2185; J7070; U0003

== ENCOUNTER 2021-08-12 00:06 | Observation (INO) | payer MEDICARE ==
[~2021-08-12 00:06] MED LIST changes: +AMLO-258 PO; -APIX2.5T PO; +METO25TA6 PO
[2021-08-12 00:37] LABS: BASOPHILS % (AUTO) 0.7 % (0.0-5.0); EOSINOPHILS % (AUTO) 1.8 % (0.0-8.0); HEMATOCRIT 30.3 % (42-54); LYMPHOCYTES % (AUTO) 26.2 % (21.0-51.0); MEAN CORPUSCULAR HEMOGLOBIN 32.2 pg (27.0-33.0); MEAN CORPUSCULAR HGB CONC 32.7 g/dL (32.0-36.0); MEAN CORPUSCULAR VOLUME 98.7 fL (79-99); MONOCYTES % (AUTO) 7.9 % (3.0-13.0); NEUTROPHILS % (AUTO) 63.2 % (40.0-77.0); PLATELET COUNT (AUTO) 81 K/uL (130-400); RED BLOOD CELL COUNT(AUTO) 3.07 MIL/uL (4.50-6.20); RED CELL DISTRIBUTION WIDTH 13.3 % (11.0-15.5); WHITE BLOOD COUNT (AUTO) 4.4 K/uL (4.8-10.8)
[2021-08-12 00:45] VITALS: BP 171/76
[2021-08-12 00:53] LABS: INR 1.09 (0.85-1.15); PROTHROMBIN TIME 11.8 SEC (9.6-11.6)
[2021-08-12] MEDS ORDERED: 0.9% NACL 500ML IV.SOLN 500 ML IV ONE (00:54)
[2021-08-12 00:55] LABS: CREATININE 6.1 mg/dL (0.5-1.5); POTASSIUM 4.8 mmol/L (3.5-5.1)
[2021-08-12] MEDS ORDERED: VANCOMYCIN 1G VIAL IVPB ONE (01:00)
[2021-08-12] MEDS ORDERED: [UNRECOGNIZED DRUG - OTHER] IV ONE (01:00)
[2021-08-12] MEDS ORDERED: 0.9% NACL 250ML IVPB ONE (01:00)
[2021-08-12] MEDS ORDERED: CEFEPIME HCL 2 GM VIAL IVP SCH (01:00)
[2021-08-12 01:01] LABS: B-TYPE NATRIURETIC PEPTIDE 1300 pg/mL (0-100)
[2021-08-12 01:06] LABS: ALBUMIN 3.2 g/dL (3.5-5.0); BILIRUBIN,TOTAL 0.5 mg/dL (0.2-1.0); TOTAL PROTEIN, SERUM 6.6 g/dL (6.0-8.3)
[2021-08-12 02:02] LABS: CRP QUANTITATIVE 3.9 mg/L (0.00-9.0); MAGNESIUM 2.5 mg/dL (1.80-2.40)
[2021-08-12] MEDS ORDERED: ASPIRIN 81MG CHEW TAB PO ONE (04:30)
[2021-08-12] MEDS ORDERED: HYDRALAZINE 20MG/ML VIAL IV PRN (04:30)
[2021-08-12] MEDS ORDERED: NITROGLYCERIN 1GM OINT 1 INCH/1GM TD SCH ×2 (04:30→06:30)
[2021-08-12 05:42] VITALS: BP 184/79
[2021-08-12] MEDS ORDERED: INSULIN HUMULIN R 100 UNIT/ML 3ML SQ SCH (07:30)
[2021-08-12] MEDS ORDERED: 0.9%NACL 1000ML 1,000 ML IV ONE (08:04)
[2021-08-12] MEDS ORDERED: ASPIRIN 81MG CHEW TAB ONE (08:08)
[2021-08-12] MEDS ORDERED: HEPARIN 5,000 UNIT VIAL SQ SCH (09:00)
[2021-08-12] MEDS ORDERED: AMLODIPINE 5 MG TAB PO SCH (09:00)
[2021-08-12] MEDS ORDERED: FAMOTIDINE 20MG TAB PO SCH (09:00)
[2021-08-12 10:00] VITALS: BP 151/54
[2021-08-12 11:13] VITALS: BP 143/46
[2021-08-13] MEDS ORDERED: LEVOTHYROXINE 100 MCG TABLET PO SCH (06:30)
[2021-08-13] MEDS ORDERED: ASPIRIN 81 MG EC TAB PO SCH (09:00)
== END 2021-08-12 12:14 | disposition left against medical advice (07) ==
LOC: EDH 00:06 → EDHIP 04:15
PROVIDERS: ADMIT Internal Medicine; ATTEND Internal Medicine
DX: E11.621 Type 2 diabetes mellitus with foot ulcer (principal); Z20.822 Contact with and (suspected) exposure to COVID-19; I13.2 Hypertensive heart and chronic kidney disease with heart failure and with stage 5 chronic kidney disease, or end stage renal disease; I50.9 Heart failure, unspecified; N18.6 End stage renal disease; E11.22 Type 2 diabetes mellitus with diabetic chronic kidney disease; E11.51 Type 2 diabetes mellitus with diabetic peripheral angiopathy without gangrene; R53.1 Weakness; R00.1 Bradycardia, unspecified; D64.9 Anemia, unspecified; E03.9 Hypothyroidism, unspecified; I73.9 Peripheral vascular disease, unspecified; M10.9 Gout, unspecified; E78.00 Pure hypercholesterolemia, unspecified; E78.5 Hyperlipidemia, unspecified; E86.0 Dehydration; L97.519 Non-pressure chronic ulcer of other part of right foot with unspecified severity; L97.529 Non-pressure chronic ulcer of other part of left foot with unspecified severity; Z99.2 Dependence on renal dialysis
CPT/HCPCS: 36415; 71045; 80053; 82550 ×2; 82948; 83605; 83735; 83874 ×2; 83880; 84443; 84484 ×2; 85025; 85378; 85610; 85730; 86140; 87040 ×2; 87076; 87635; 93005; 96365; 96366; 96372; 96375; 99285; G0378 ×8; J0692; J1644; J7030; J7040

== ENCOUNTER 2023-02-03 21:38 | Emergency (ER) | payer MEDICARE ==
[~2023-02-03] VITALS: Ht 162.6 cm; Wt 62.1 kg
[~2023-02-03 21:38] MED LIST changes: -AMLO10TA4 PO; +AURYXIA PO; -CALC667C10 PO; -CEPH250C2 PO; +CHOL50002 PO; -DOXY100T21 PO; -FERR210T PO; +FOLI1TAB85 PO; +LEVO100C4 PO; -LEVO100T12 PO; -METO50TA18 PO
[2023-02-03 22:54] VITALS: BP 135/85
[2023-02-04] MEDS ORDERED: MORPHINE 4 MG SYG IM PRN (00:30)
[2023-02-04] MEDS ORDERED: MORPHINE 4 MG SYG ONE (00:41)
== END 2023-02-04 02:14 | disposition home or self-care (01) ==
LOC: EDH 21:38
DX: S30.0XXA Contusion of lower back and pelvis, initial encounter (principal); E11.22 Type 2 diabetes mellitus with diabetic chronic kidney disease; I12.0 Hypertensive chronic kidney disease with stage 5 chronic kidney disease or end stage renal disease; N18.6 End stage renal disease; Z99.2 Dependence on renal dialysis; Z88.1 Allergy status to other antibiotic agents; W06.XXXA Fall from bed, initial encounter; Y93.89 Activity, other specified; Y92.89 Other specified places as the place of occurrence of the external cause; Y99.8 Other external cause status
CPT/HCPCS: 99283; 72100; 96372; J2270

== ENCOUNTER 2023-11-12 09:05 | Emergency (ER) | payer MEDICARE ==
[~2023-11-12] VITALS: Ht 162.6 cm; Wt 61.7 kg
[~2023-11-12 09:05] MED LIST changes: -AURYXIA PO; +CALC667C10 PO; +HYDR25 PO; +LEVO-70 PO
[2023-11-12] MEDS ORDERED: KETOROLAC 15MG/ML VIAL (15MG/ML) IV ONE (09:30)
[2023-11-12 09:52] LABS: BASOPHILS # (AUTO) 0.03 K/uL (0.00-0.20); BASOPHILS % (AUTO) 0.4 % (0.0-5.0); EOSINOPHILS # (AUTO) 0.05 K/uL (0.00-0.70); EOSINOPHILS % (AUTO) 0.6 % (0.0-8.0); HEMATOCRIT 34.8 % (42-54); IMMATURE GRANULOCYTE ABSOLUTE 0.04 K/uL (0-1); LYMPHOCYTES # (AUTO) 0.9 K/uL (1.0-4.8); LYMPHOCYTES % (AUTO) 10.6 % (21.0-51.0); MEAN CORPUSCULAR HEMOGLOBIN 33.5 pg (27.0-33.0); MEAN CORPUSCULAR HGB CONC 33.6 g/dL (32.0-36.0); MEAN CORPUSCULAR VOLUME 99.7 fL (79-99); MONOCYTES # (AUTO) 0.6 K/uL (0.1-1.0); MONOCYTES % (AUTO) 6.5 % (3.0-13.0); NEUTROPHILS % (AUTO) 81.4 % (40.0-77.0); PLATELET COUNT (AUTO) 112 K/uL (130-400); RED BLOOD CELL COUNT(AUTO) 3.49 MIL/uL (4.50-6.20); RED CELL DISTRIBUTION WIDTH 14.4 % (11.0-15.5); WHITE BLOOD COUNT (AUTO) 8.6 K/uL (4.8-10.8)
[2023-11-12 09:55] VITALS: PULSE 52; RESP 17
[2023-11-12] MEDS ORDERED: IPRATROPIUM/ALBUTEROL SULFATE 3 ML SOLUTION IH ONE (10:00)
[2023-11-12 10:10] LABS: RAPID GROUP A STREP negative (NEGATIVE)
[2023-11-12 10:13] LABS: SARS-CoV-2, RNA, NAAT NEGATIVE SARS CoV-2 (NEGATIVE)
[2023-11-12 10:15] LABS: POTASSIUM 4.6 mmol/L (3.5-5.1); TOTAL PROTEIN, SERUM 7.4 g/dL (6.0-8.3)
[2023-11-12 10:17] LABS: INFLUENZA TYPE A Negative For Type A (NEGATIVE); INFLUENZA TYPE B Negative For Type B (NEGATIVE)
[2023-11-12 10:22] LABS: CREATININE 9.9 mg/dL (0.5-1.5)
[2023-11-12 12:38] VITALS: BP 165/89; PULSE 85; RESP 20; O2SAT 97
== END 2023-11-12 12:45 | disposition home or self-care (01) ==
LOC: EDH 09:05
DX: R10.9 Unspecified abdominal pain (principal); I12.0 Hypertensive chronic kidney disease with stage 5 chronic kidney disease or end stage renal disease; E11.22 Type 2 diabetes mellitus with diabetic chronic kidney disease; N18.6 End stage renal disease; Z99.2 Dependence on renal dialysis; E78.00 Pure hypercholesterolemia, unspecified; Z79.899 Other long term (current) drug therapy; Z88.1 Allergy status to other antibiotic agents; Z20.822 Contact with and (suspected) exposure to COVID-19
CPT/HCPCS: 99285; 74176; 96374; 71045; 87635; 80053; 83690; 85025; 87880; 87804 ×2; 36415; 94640; C9803; J1885

== ENCOUNTER 2024-01-30 11:08 | Emergency (ER) | payer MEDICARE ==
[~2024-01-30] VITALS: Ht 160 cm; Wt 59.0 kg
[~2024-01-30 11:08] MED LIST changes: +CYCL10TA16 PO
[2024-01-30 12:06] VITALS: BP 159/73; PULSE 63; RESP 16; O2SAT 98
== END 2024-01-30 13:23 | disposition left against medical advice (07) ==
LOC: EDH 11:08
DX: M79.604 Pain in right leg (principal); I12.0 Hypertensive chronic kidney disease with stage 5 chronic kidney disease or end stage renal disease; E11.22 Type 2 diabetes mellitus with diabetic chronic kidney disease; N18.6 End stage renal disease; Z99.2 Dependence on renal dialysis